=== PATIENT | female | born 1965 | race Two or more races ===

== ENCOUNTER → 2020-03-23 | Emergency (ER) | payer MEDICARE ==
[~2020-03-23] VITALS: Ht 160 cm; Wt 81.6 kg
[~2020-03-23] MED LIST: ACETAMINOPHEN 325 MG TAB PO ONE; CHLORHEXIDINE 0.12% ORAL rinse 473ML MT SCH; MORPHINE SULF INJ 2 MG/ML SYRINGE 1ML IV ONE; ONDANSETRON HCL 4 MG/2 ML VIAL IV ONE; ONDANSETRON HCL 4 MG/2 ML VIAL ONE; SODIUM CHLORIDE 0.9% 1,000 ML IV ONE; THROAT LOZENGES(CEPASTAT) MT PRN; cefTRIAXone 1GM/50ML D5W 50 ML IV ONE
[2020-03-23 09:45] LABS: Basophils # (auto) 0.1 10 ^3/uL (0-0.2); Basophils % (auto) 0.2 % (0.0-2.0); Eosinophils # (auto) 0 10 ^3/uL (0-0.8); Eosinophils % (auto) 0.1 % (0.0-7.0); Hematocrit 41.4 % (36.0-46.0); Hemoglobin 13.7 g/dL (12.2-16.2); Lymphocytes # (auto) 1.9 10 ^3/uL (0.4-5.4); Lymphocytes % (auto) 9.1 % (10.0-50.0); Mean Corpuscular Hemoglobin 29.8 pg (28.0-32.0); Mean Corpuscular Hgb Conc. 33.2 g/dL (32.0-36.0); Mean Corpuscular Volume 89.8 fL (80.0-100.0); Monocytes # (auto) 1.3 10 ^3/uL (0-1.3); Neutrophils # (auto) 17.6 10 ^3/uL (1.6-8.6); Neutrophils % (auto) 84.6 % (37.0-80.0); Nucleated Red Blood Cells % 0.1 %; Platelet Count (auto) 284 10^3/uL (140-450); Red Blood Cells 4.61 10^6/uL (4.0-5.20); Red Cell Distribution Width 13.3 % (11.8-14.3); White Blood Cell 20.9 10^3/uL (4.4-10.8)
[2020-03-23 10:11] LABS: Albumin 3.7 g/dL (3.4-5.0); Anion Gap 5 (5-15); Blood Urea Nitrogen 9 mg/dL (7-18); Calcium 8.6 mg/dL (8.5-10.1); Carbon Dioxide 25 mmol/L (21-32); Chloride 105 mmol/L (98-107); Glucose 114 mg/dL (74-106); Potassium 3.7 mmol/L (3.5-5.1); Sodium 135 mmol/L (136-145)
[2020-03-23 10:17] LABS: Alanine Aminotransferase 18 U/L (13-56); Alkaline Phosphatase 75 U/L (45-117); Aspartate Aminotransferase 10 U/L (15-37); BUN/Creatinine Ratio 11.5; Bilirubin, Total 0.4 mg/dL (0.2-1.0); GFR African American 98 mL/min; GFR Non-African American 81 mL/min; Total Protein 8.2 g/dL (6.4-8.2)
[2020-03-23 14:22] VITALS: BP 113/47
== END | disposition short-term general hospital (02) ==
LOC: ER 09:08
DX: J36 Peritonsillar abscess (principal); E86.0 Dehydration; D72.829 Elevated white blood cell count, unspecified; I10 Essential (primary) hypertension; Z20.828 Contact with and (suspected) exposure to other viral communicable diseases
CPT/HCPCS: 36415; 71045; 80053; 83605; 84484; 85025; 87040; 87804; 87880; 96361; 96365; 96375; 99285; J0696; J2270; J2405; J7030; U0003

== ENCOUNTER 2021-01-10 09:15 | Emergency (ER) | payer MEDICARE, MEDICAID ==
[~2021-01-10] VITALS: Ht 160 cm; Wt 68.0 kg
[2021-01-10 09:22] VITALS: BP 153/81
[2021-01-10] MEDS ORDERED: ACETAMINOPHEN 325 MG TAB PO ONE (09:30)
[2021-01-10] MEDS ORDERED: ACETAMINOPHEN 500 MG TAB PO ONE (09:45)
[2021-01-10] MEDS ORDERED: SODIUM CHLORIDE 0.9% 1,000 ML IV ONE (10:15)
[2021-01-10] MEDS ORDERED: cefTRIAXone 1GM/50ML D5W 50 ML IV ONE (10:15)
[2021-01-10 11:03] LABS: Basophils # (auto) 0 10 ^3/uL (0-0.2); Basophils % (auto) 0.2 % (0.0-2.0); Eosinophils # (auto) 0 10 ^3/uL (0-0.8); Hematocrit 38.6 % (36.0-46.0); Hemoglobin 13.1 g/dL (12.2-16.2); Lymphocytes # (auto) 1.4 10 ^3/uL (0.4-5.4); Lymphocytes % (auto) 11.1 % (10.0-50.0); Mean Corpuscular Hemoglobin 30.1 pg (28.0-32.0); Mean Corpuscular Hgb Conc. 33.8 g/dL (32.0-36.0); Mean Corpuscular Volume 89.1 fL (80.0-100.0); Monocytes # (auto) 0.6 10 ^3/uL (0-1.3); Monocytes % (auto) 4.7 % (0.0-12.0); Neutrophils # (auto) 10.9 10 ^3/uL (1.6-8.6); Red Blood Cells 4.34 10^6/uL (4.0-5.20); Red Cell Distribution Width 13.3 % (11.8-14.3)
[2021-01-10 11:03] LABS: Urine Bacteria FEW /hpf (None Seen); Urine Blood 2+ /uL (Negative); Urine WBC 16 /hpf (0 - 5)
[2021-01-10 11:32] LABS: Albumin 3.4 g/dL (3.4-5.0); Calcium 8.6 mg/dL (8.5-10.1); Potassium 3.7 mmol/L (3.5-5.1)
[2021-01-10 11:36] LABS: BUN/Creatinine Ratio 14.5; Bilirubin, Total 0.4 mg/dL (0.2-1.0); Total Protein 7.6 g/dL (6.4-8.2)
== END 2021-01-10 12:09 | disposition home or self-care (01) ==
LOC: ER 09:15
DX: N39.0 Urinary tract infection, site not specified (principal); R07.9 Chest pain, unspecified; J03.90 Acute tonsillitis, unspecified; I10 Essential (primary) hypertension; Z20.822 Contact with and (suspected) exposure to COVID-19
CPT/HCPCS: 36415; 71045; 80053; 81001; 84443; 85025; 87070; 87426; 87880; 96365; 99284; J0696; J7030

== ENCOUNTER → 2021-02-27 | Outpatient (CLI) | payer MEDICARE, MEDICAID | END | disposition home or self-care (01) | LOC: XYW 11:10 | PROVIDERS: ATTEND Psychiatry & Neurology Neurology | DX: I67.82 Cerebral ischemia (principal); G93.89 Other specified disorders of brain; J34.89 Other specified disorders of nose and nasal sinuses; R51.9 Headache, unspecified | CPT/HCPCS: 70551 ==

== ENCOUNTER 2021-11-08 21:25 | Emergency (ER) | payer MEDICARE, MEDICAID ==
[~2021-11-08] VITALS: Ht 165.1 cm; Wt 77.1 kg
[2021-11-08] MEDS ORDERED: LORazepam 0.5 MG TAB PO ONE (23:30)
[2021-11-09 01:39] LABS: Basophils # (auto) 0 10 ^3/uL (0-0.2); Basophils % (auto) 0.5 % (0.0-2.0); Eosinophils # (auto) 0.2 10 ^3/uL (0-0.8); Eosinophils % (auto) 1.8 % (0.0-7.0); Hematocrit 38.8 % (36.0-46.0); Hemoglobin 12.5 g/dL (12.2-16.2); Lymphocytes # (auto) 3.1 10 ^3/uL (0.4-5.4); Lymphocytes % (auto) 36.6 % (10.0-50.0); Mean Corpuscular Hemoglobin 29.2 pg (28.0-32.0); Mean Corpuscular Hgb Conc. 32.2 g/dL (32.0-36.0); Mean Corpuscular Volume 90.7 fL (80.0-100.0); Monocytes # (auto) 0.5 10 ^3/uL (0-1.3); Monocytes % (auto) 6.5 % (0.0-12.0); Neutrophils # (auto) 4.6 10 ^3/uL (1.6-8.6); Neutrophils % (auto) 54.6 % (37.0-80.0); Nucleated Red Blood Cells % 0.1 %; Red Blood Cells 4.28 10^6/uL (4.0-5.20); Red Cell Distribution Width 13.3 % (11.8-14.3); White Blood Cell 8.4 10^3/uL (4.4-10.8)
[2021-11-09 02:09] LABS: Albumin 3.5 g/dL (3.4-5.0); Calcium 8.4 mg/dL (8.5-10.1); Magnesium 2.9 mg/dL (1.6-2.6); Potassium 4.1 mmol/L (3.5-5.1)
[2021-11-09 02:23] LABS: BUN/Creatinine Ratio 35.1; Bilirubin, Total 0.2 mg/dL (0.2-1.0); Total Protein 7.2 g/dL (6.4-8.2)
[2021-11-09 08:04] VITALS: BP 153/64
[2021-11-09] MEDS ORDERED: CLIN300C8 PO (08:26)
== END 2021-11-09 08:27 | disposition home or self-care (01) ==
LOC: ER 21:27
DX: R07.89 Other chest pain (principal); K02.9 Dental caries, unspecified; I10 Essential (primary) hypertension
CPT/HCPCS: 36415; 71045; 80053; 83735; 84484; 85025; 93005

== ENCOUNTER 2023-06-28 14:02 | Inpatient (IN) | payer MEDICARE, MEDICAID ==
[~2023-06-28] VITALS: Ht 157.5 cm; Wt 81.6 kg
[~2023-06-28 14:02] MED LIST changes: -ACETAMINOPHEN 325 MG TAB PO ONE; -CHLORHEXIDINE 0.12% ORAL rinse 473ML MT SCH; +CLIN300C70 PO; -MORPHINE SULF INJ 2 MG/ML SYRINGE 1ML IV ONE; -ONDANSETRON HCL 4 MG/2 ML VIAL IV ONE; -ONDANSETRON HCL 4 MG/2 ML VIAL ONE; -SODIUM CHLORIDE 0.9% 1,000 ML IV ONE; -THROAT LOZENGES(CEPASTAT) MT PRN; -cefTRIAXone 1GM/50ML D5W 50 ML IV ONE
[2023-06-28 14:57] LABS: Urine Bacteria FEW /hpf (None Seen); Urine Blood Negative /uL (Negative); Urine Clarity Clear (Clear); Urine Color Colorless (Yellow); Urine Protein, UAD Negative (Negative); Urine Specific Gravity 1.002 (1.001-1.035); Urine Urobilinogen Normal (Negative); Urine WBC <1 /hpf (0 - 5)
[2023-06-28 15:10] LABS: Basophils # (auto) 0 10 ^3/uL (0-0.2); Basophils % (auto) 0.1 % (0.0-2.0); Eosinophils # (auto) 0.1 10 ^3/uL (0-0.8); Eosinophils % (auto) 1.3 % (0.0-7.0); Hematocrit 39.4 % (36.0-46.0); Hemoglobin 13.1 g/dL (12.2-16.2); Lymphocytes # (auto) 2.5 10 ^3/uL (0.4-5.4); Lymphocytes % (auto) 24.3 % (10.0-50.0); Mean Corpuscular Hemoglobin 30.4 pg (28.0-32.0); Mean Corpuscular Hgb Conc. 33.2 g/dL (32.0-36.0); Mean Corpuscular Volume 91.6 fL (80.0-100.0); Monocytes # (auto) 0.7 10 ^3/uL (0-1.3); Monocytes % (auto) 6.6 % (0.0-12.0); Neutrophils # (auto) 7.1 10 ^3/uL (1.6-8.6); Neutrophils % (auto) 67.7 % (37.0-80.0); Nucleated Red Blood Cells % 0.1 %; Red Cell Distribution Width 13.3 % (11.8-14.3); White Blood Cell 10.5 10^3/uL (4.4-10.8)
[2023-06-28 15:18] LABS: Alanine Aminotransferase 13 U/L (7-40); Albumin 4.3 g/dL (3.2-4.8); Alkaline Phosphatase 55 U/L (46-116); Anion Gap 4.8 (5-15); Aspartate Aminotransferase < 8 U/L (13-40); BUN/Creatinine Ratio 11.8 (10.0-20.0); Blood Urea Nitrogen 11 mg/dL (9-23); Calcium 9.4 mg/dL (8.5-10.1); Carbon Dioxide 27.2 mmol/L (20-30); Chloride 107 mmol/L (98-107); Glucose 100 mg/dL (74-106); Potassium 4.2 mmol/L (3.5-5.1); Sodium 139 mmol/L (136-145)
[2023-06-28 15:19] LABS: Bilirubin, Total 0.7 mg/dL (0.2-1.0); Total Protein 7.1 g/dL (5.7-8.2)
[2023-06-28] MEDS ORDERED: SODIUM CHLORIDE 0.9% 500 ML IV ONE (17:15)
[2023-06-28] MEDS ORDERED: ASPirin 325 MG TAB PO ONE (17:15)
[2023-06-28] MEDS ORDERED: NITROGLYCERIN 0.4 MG SL TAB SL ONE (17:15)
[2023-06-28] MEDS ORDERED: MORPHINE SULFATE 4 MG/ML SYR/VIAL IV PRN (18:45)
[2023-06-28] MEDS ORDERED: ONDANSETRON HCL 4 MG/2 ML VIAL IV PRN (18:45)
[2023-06-28] MEDS ORDERED: NITROGLYCERIN 0.4 MG SL TAB SL PRN (18:45)
[2023-06-28 21:09] LABS: INR 1.02 (0.9-1.15); Prothrombin Time 10.7 sec (9.3-11.8)
[2023-06-28] MEDS: ENOXAPARIN SOD 80 MG/0.8ML SYRINGE SC SCH (23:29)
[2023-06-28] MEDS: ATORVASTATIN 20 MG TAB PO SCH (23:29)
[2023-06-28] MEDS: METOPROLOL TARTRATE 25 MG TAB PO SCH (23:30)
[2023-06-29 00:39] VITALS: PULSE 84; O2SAT 98
[2023-06-29] MEDS: ACETAMINOPHEN 325 MG TAB PO PRN ×2 (03:22→08:22)
[2023-06-29 06:28] LABS: Basophils # (auto) 0.1 10 ^3/uL (0-0.2); Basophils % (auto) 0.8 % (0.0-2.0); Eosinophils # (auto) 0.1 10 ^3/uL (0-0.8); Eosinophils % (auto) 1.6 % (0.0-7.0); Hematocrit 38.1 % (36.0-46.0); Hemoglobin 12.9 g/dL (12.2-16.2); Lymphocytes # (auto) 3.2 10 ^3/uL (0.4-5.4); Lymphocytes % (auto) 35.8 % (10.0-50.0); Mean Corpuscular Hemoglobin 30.8 pg (28.0-32.0); Mean Corpuscular Hgb Conc. 33.9 g/dL (32.0-36.0); Monocytes # (auto) 0.6 10 ^3/uL (0-1.3); Monocytes % (auto) 6.4 % (0.0-12.0); Neutrophils % (auto) 55.4 % (37.0-80.0); Nucleated Red Blood Cells % 0.1 %; Red Blood Cells 4.18 10^6/uL (4.0-5.20); Red Cell Distribution Width 13.3 % (11.8-14.3); White Blood Cell 8.9 10^3/uL (4.4-10.8)
[2023-06-29 06:46] LABS: Anion Gap 5.7 (5-15); BUN/Creatinine Ratio 14.3 (10.0-20.0); Blood Urea Nitrogen 11 mg/dL (9-23); Calcium 9.1 mg/dL (8.7-10.4); Carbon Dioxide 26.3 mmol/L (20-30); Chloride 104 mmol/L (98-107); Glucose 95 mg/dL (74-106); Potassium 3.7 mmol/L (3.5-5.1); Sodium 136 mmol/L (136-145)
[2023-06-29 06:47] LABS: Albumin 4.2 g/dL (3.2-4.8); Aspartate Aminotransferase < 8 U/L (13-40)
[2023-06-29 06:48] LABS: Total Protein 7.1 g/dL (5.7-8.2)
[2023-06-29 06:57] LABS: Alanine Aminotransferase < 9 U/L (7-40)
[2023-06-29 06:58] LABS: Alkaline Phosphatase 54 U/L (46-116)
[2023-06-29 07:50] VITALS: PULSE 52; RESP 16; O2SAT 95
[2023-06-29] MEDS: ENOXAPARIN SOD 80 MG/0.8ML SYRINGE SC SCH (11:56)
[2023-06-29] MEDS: METOPROLOL TARTRATE 25 MG TAB PO SCH (11:57)
[2023-06-29] MEDS: ASPirin 81 mg TAB PO SCH (12:01)
[2023-06-29 18:27] VITALS: PULSE 53; RESP 18; O2SAT 94
[2023-06-29 20:00] VITALS: PULSE 53
[2023-06-29] MEDS: ATORVASTATIN 20 MG TAB PO SCH (21:20)
[2023-06-29 22:00] VITALS: BP 144/57; PULSE 56; RESP 18; TEMP 98.2; O2SAT 95
[2023-06-30 05:00] VITALS: BP 136/66; PULSE 54; RESP 18; TEMP 98.3; O2SAT 96
[2023-06-30 06:48] LABS: Triglycerides 124 mg/dL (< 150)
[2023-06-30 06:49] LABS: LDL Cholesterol 131 mg/dL (< 100)
[2023-06-30 06:50] LABS: Cholesterol 169 mg/dL (< 200); HDL Cholesterol 28 mg/dL (40-59)
[2023-06-30 08:00] VITALS: BP 164/122; PULSE 51; PULSE 59; RESP 22; TEMP 97.6; O2SAT 96
[2023-06-30] MEDS ORDERED: LOSARTAN POTASSIUM 25 MG TAB PO SCH (10:00)
[2023-06-30] MEDS: ASPirin 81 mg TAB PO SCH (10:00)
[2023-06-30] MEDS ORDERED: ENOXAPARIN SOD 40 MG/0.4 ML SYRINGE SC SCH (10:00)
[2023-06-30] MEDS ORDERED: PANT40T PO (11:03)
[2023-06-30] MEDS ORDERED: LOSA25TA15 PO (11:03)
[2023-06-30 12:00] VITALS: BP 151/71; PULSE 50; RESP 20; TEMP 97.8; O2SAT 97
[2023-06-30] MEDS ORDERED: LACTULOSE 20Gm/30ML SOLN PO ONE (14:30)
== END 2023-06-30 15:35 | disposition home or self-care (01) | DRG 311 ==
LOC: ER 14:02 → TELE 18:49 → TELE-WESTW 06-29 18:28
PROVIDERS: ADMIT Nurse Practitioner Family; ATTEND Family Medicine
DX: I24.9 Acute ischemic heart disease, unspecified (principal); R07.89 Other chest pain; I10 Essential (primary) hypertension; E66.9 Obesity, unspecified; E03.9 Hypothyroidism, unspecified; F41.1 Generalized anxiety disorder; R00.1 Bradycardia, unspecified; E11.9 Type 2 diabetes mellitus without complications; Z79.899 Other long term (current) drug therapy; Z68.32 Body mass index [BMI] 32.0-32.9, adult
CPT/HCPCS: 36415; 71046; 80053; 80061; 81001; 83036; 83735; 84443; 84484; 85025; 85379; 85610; 93005; 93306; G0378; J2405

== ENCOUNTER 2024-03-11 22:16 | Emergency (ER) | payer MEDICARE, MEDICAID ==
[~2024-03-11] VITALS: Ht 165.1 cm; Wt 81.8 kg
[~2024-03-11 22:16] MED LIST changes: +CLIN1CAP70 PO; -CLIN300C70 PO; +LOSA-533 PO; +PANT40T PO
[2024-03-11 23:35] LABS: Basophils # (auto) 0 10 ^3/uL (0-0.2); Basophils % (auto) 0.5 % (0.0-2.0); Eosinophils # (auto) 0.2 10 ^3/uL (0-0.8); Eosinophils % (auto) 2.6 % (0.0-7.0); Hematocrit 40.7 % (36.0-46.0); Hemoglobin 13.4 g/dL (12.2-16.2); Lymphocytes # (auto) 2.8 10 ^3/uL (0.4-5.4); Lymphocytes % (auto) 34.4 % (10.0-50.0); Mean Corpuscular Hemoglobin 29.9 pg (28.0-32.0); Mean Corpuscular Hgb Conc. 32.9 g/dL (32.0-36.0); Mean Corpuscular Volume 90.9 fL (80.0-100.0); Monocytes # (auto) 0.5 10 ^3/uL (0-1.3); Monocytes % (auto) 6.7 % (0.0-12.0); Neutrophils # (auto) 4.6 10 ^3/uL (1.6-8.6); Neutrophils % (auto) 55.8 % (37.0-80.0); Red Blood Cells 4.47 10^6/uL (4.0-5.20); Red Cell Distribution Width 13.4 % (11.8-14.3); White Blood Cell 8.2 10^3/uL (4.4-10.8)
[2024-03-11 23:53] LABS: INR 1.01 (0.9-1.15); Partial Thromboplastin Time 25.7 SEC (24.5-34.5); Prothrombin Time 10.7 sec (9.3-11.8)
[2024-03-11 23:56] LABS: Alanine Aminotransferase 43 U/L (7-40); Albumin 4.4 g/dL (3.2-4.8); Alkaline Phosphatase 55 U/L (46-116); Anion Gap 4 (5-15); Aspartate Aminotransferase 23 U/L (13-40); BUN/Creatinine Ratio 20.5 (10.0-20.0); Blood Urea Nitrogen 16 mg/dL (9-23); Calcium 9.7 mg/dL (8.7-10.4); Carbon Dioxide 26 mmol/L (20-30); Chloride 107 mmol/L (98-107); Glucose 110 mg/dL (74-106); Lipase 57 U/L (12-53); Sodium 137 mmol/L (136-145)
[2024-03-11 23:57] LABS: Bilirubin, Total 0.3 mg/dL (0.2-1.0); Total Protein 7.5 g/dL (5.7-8.2)
[2024-03-12] MEDS ORDERED: ACET-1304 PO (02:42)
[2024-03-12] MEDS ORDERED: PANT40TA2 PO (02:42)
[2024-03-12] MEDS ORDERED: METR-344 PO (02:42)
[2024-03-12] MEDS ORDERED: CIPR-173 PO (02:42)
[2024-03-12] MEDS ORDERED: DICY10CA PO (02:43)
[2024-03-12 05:30] VITALS: BP 126/88; PULSE 78; RESP 16; O2SAT 97
[2024-03-12] MEDS: MORPHINE SULFATE 4 MG/ML SYR/VIAL IV ONE (05:30)
[2024-03-12] MEDS: PANTOPRAZOLE 40 MG/10 ML VIAL INJ IV ONE (05:30)
[2024-03-12] MEDS: PIPERACILLIN-TAZOB 3.375GM 100 ML IV ONE (05:30)
[2024-03-12] MEDS: ONDANSETRON HCL 4 MG/2 ML VIAL IV ONE (05:30)
== END 2024-03-12 05:31 | disposition home or self-care (01) ==
LOC: ER 22:16
DX: K92.2 Gastrointestinal hemorrhage, unspecified (principal); R31.9 Hematuria, unspecified; I10 Essential (primary) hypertension; F41.9 Anxiety disorder, unspecified; Z79.899 Other long term (current) drug therapy
CPT/HCPCS: 36415; 74176; 80053; 83605; 83690; 84484; 85025; 85610; 85730; 87040

== ENCOUNTER 2024-09-17 05:27 | Inpatient (IN) | payer MEDICARE, MEDICAID ==
[~2024-09-17] VITALS: Ht 157.5 cm; Wt 83.0 kg
[~2024-09-17 05:27] MED LIST changes: +ACET-1304 PO; +CIPR-173 PO; +DICY10CA PO; +METR-344 PO; +PANT40TA2 PO
--- NOTE | 2024-09-17 06:30 | ED.PDOC ---
History of Present Illness HPI Comments 59-year-old female presents with a chief complaint of lightheadedness and dizzy spells s/p hypertensive episodes. Patient mentions that she recently lost two sons and has been under a higher amount of stress recently. Patient mentions that when she takes her blood pressure it results in the 200s systolic. Patient mentions that she is compliant with her HTN medication, but that her BP keeps fluctuating. Patient is tearful in triage. No other symptoms or modifying factors present at this time. Chief Complaint: High Blood Pressure Time Seen by MD: 06:09 Primary Care Provider: MIKEL Reviewed Notes: Medications, Allergies Allergies: Coded Allergies: No Known Drug Allergy (Verified Allergy, Unknown, 03/23/20) Home Meds Active Scripts Dicyclomine Hcl (BENTYL CAPSULE) 10 Mg Cp, 2 CAP PO Q6HPRN, #30 CAP 3 Refills prn abdomnal pain Prov:LIT ALMARAZ MD 03/12/24 Acetaminophen (Tylenol Extra Strength) 500 Mg Tab, 1000 MG PO Q6HP PRN, #30 TAB Prov:LIT ALMARAZ MD 03/12/24 Pantoprazole Sodium Sesquihydr (Protonix) 40 Mg Tab, 40 MG PO DAILY, #30 TAB Prov:LIT ALMARAZ MD 03/12/24 Metronidazole (Flagyl) 500 Mg Tab, 1 TAB PO TID for 10 Days, #30 TAB Prov:LIT ALMARAZ MD 03/12/24 Ciprofloxacin Hcl (Cipro) 500 Mg Tab, 1 TAB PO BID for 10 Days, #20 TAB Prov:LIT ALMARAZ MD 03/12/24 Pantoprazole Sodium Sesquihydr (Pantoprazole Sodium) 40 Mg Tab, 40 MG PO DAILY, #30 TAB Prov:DAYDAY OROZCO MD 06/30/23 Losartan Potassium (Losartan Potassium) 25 Mg Tab, 1 TAB PO DAILY, #90 TAB 1 Refill Prov:DAYDAY OROZCO MD 06/30/23 Clindamycin Hcl (Clindamycin Hcl) 300 Mg Cap, 300 MG PO TID for 7 Days, #21 CAP Prov:NUPUR MCGEE MD 11/09/21 Information Source: Patient Mode of Arrival: Ambulatory Severity: Moderate Timing: Days Duration: Since onset Prehospital treatment: None Past Medical History PAST MEDICAL HISTORY: Anxiety, HTN, Thyroid Surgical History: Denies all surgeries 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 [employer]UL[employer] TEAM LEADER History Family History Family History: Reviewed,noncontributory to illness Social History Smoker: Non-Smoker Alcohol: Denies ETOH Use Drugs: Denies Drug Use Lives In: Home Constitutional: denies: chills, diaphoresis, fatigue, fever, malaise, sweats, weakness, others EENTM: denies: blurred vision, double vision, ear bleeding, ear discharge, ear drainage, ear pain, ear ringing, eye pain, eye redness, hearing loss, mouth pain, mouth swelling, nasal discharge, nose bleeding, nose congestion, nose pain, photophobia, tearing, throat pain, throat swelling, voice changes, others Respiratory: denies: cough, hemoptysis, orthopnea, SOB at rest, shortness of breath, SOB with excertion, stridor, wheezing, others Cardiovascular: reports: dizzy spells, lightheadedness; denies: chest pain, diaphoresis, Dyspnea on exertion, edema, irregular heart beat, left arm pain, palpitations, PND, syncope, others Gastrointestinal: denies: abdomen distended, abdominal pain, blood streaked bowels, constipated, diarrhea, dysphagia, difficulty swallowing, hematemesis, melena, nausea, poor appetite, poor fluid intake, rectal bleeding, rectal pain, vomiting, others Genitourinary: denies: abnormal vagina bleeding, burning, dyspareunia, dysuria, flank pain, frequency, hematuria, incontinence, pain, , vagina discharge, urgency, others Neurological: denies: dizziness, fainting, headache, left sided numbness, left sided weakness, numbness, paresthesia, pre-existing deficit, right sided numbness, right sided weakness, seizure, speech problems, tingling, tremors, weakness, others Musculoskeletal: denies: back pain, gout, joint pain, joint swelling, muscle pain, muscle stiffness, neck pain, others Integumetry: denies: bruises, change in color, change in hair/nails, dryness, laceration, lesions, lumps, rash, wounds, others Allergic/Immunocompromised: denies: Difficulty Healing, Frequent Infections, Hives, Itching, others Hematologic/Lymphatic: denies: anemia, blood clots, easy bleeding, easy bruising, swollen glands, others Endocrine: denies: excessive hunger, excessive sweating, excessive thirst, excessive urination, flushing, intolerance to cold, intolerance to heat, unexplained weight gain, unexplained weight loss, others Psychiatric: denies: anxiety, bipolar disorder, depression, hopeless, panic disorder, schizophrenia, sleepless, suicidal, others All Other Systems: Reviewed and Negative Physical Exam General Appearance: Moderate Distress (PATIENT IS TEARFUL IN TRIAGE), Normal HEENT: Normal ENT Inspection, Pharynx Normal, TMs Normal Neck: Full Range of Motion, Non-Tender, Normal, Normal Inspection Respiratory: Chest Non-Tender, Lungs Clear, No Accessory Muscle Use, No Respiratory Distress, Normal Breath Sounds Cardiovascular: No Edema, No JVD, No Murmur, No Gallop, Normal Peripheral Pulses, Regular Rate/Rhythm Breast Exam: Deferred Gastrointestinal: No Organomegaly, Non Tender, No Pulsatile Mass, Normal Bowel Sounds, Soft Genitalia: Deferred Pelvic: Deferred Rectal: Deferred Extremities: No calf tenderness, Normal capillary refill, Normal inspection, Normal range of motion, Non-tender, No pedal edema Musculoskeletal : Apperance: Normal Neurologic: Alert, corporate compliance officer II-XII nml as Tested, No Motor Deficits, Normal Affect, Normal Mood, No Sensory Deficits Cerebellar Function: Normal Reflexes: Normal Skin: Dry, Normal Color, Warm Lymphatic: No Adenopathy Was a procedure done? Was a procedure done?: No Differential Dx Considerations may include: Hypertensive urgency, grief, ACS, electrolyte abnormalities, infectious etiology X-Ray, Labs, Meds, VS Vital Signs Date Time Temp Pulse Resp B/P (MAP) Pulse Ox O2 Delivery O2 Flow Rate FiO2 09/17/24 09:48 158/64 09/17/24 09:38 56 17 158/64 (95) 99 09/17/24 07:28 57 18 99 Room Air 09/17/24 07:28 97.7 57 18 201/77 (118) 99 97.7 09/17/24 05:52 58 09/17/24 05:40 98.0 60 16 177/82 (113) 98 Lab Test 09/17/24 10:30 09/17/24 08:33 09/17/24 07:39 09/17/24 06:33 Range/Units Troponin I High Sensitivity Pending 3 L 4 </=34 ng/L Urine Color Light-yellow Yellow Urine Clarity Clear Clear Urine pH 5.0 5.0-9.0 Urine Specific [place] 1.016 1.001-1.035 Urine Protein Negative Negative Urine Ketones Negative Negative Urine Blood Trace H Negative /uL Urine Nitrite Negative Negative Urine Bilirubin Negative Negative Urine Urobilinogen Normal Negative mg/dL Urine Leukocyte Esterase Negative Negative /uL Urine RBC 1 0 - 4 /hpf Urine WBC 1 0 - 5 /hpf Urine Squamous Epithelial Cells Few <5 /hpf Urine Bacteria Few H None Seen /hpf Urine Mucus Few None Seen Urine Glucose Normal Normal mg/dL White Blood Count 6.2 4.4-10.8 10^3/uL Red Blood Count 4.37 4.0-5.20 10^6/uL Hemoglobin 13.6 12.2-16.2 g/dL Hematocrit 40.4 36.0-46.0 % Mean Corpuscular Volume 92.4 80.0-100.0 fL Mean Corpuscular Hemoglobin 31.1 28.0-32.0 pg Mean Corpuscular Hemoglobin Concent 33.6 32.0-36.0 g/dL Red Cell Distribution Width 13.4 11.8-14.3 % Platelet Count 302 140-450 10^3/uL Mean Platelet Volume 9.4 6.9-10.8 fL Neutrophils (%) (Auto) 53.5 37.0-80.0 % Lymphocytes (%) (Auto) 39.2 10.0-50.0 % Monocytes (%) (Auto) 5.1 0.0-12.0 % Eosinophils (%) (Auto) 1.9 0.0-7.0 % Basophils (%) (Auto) 0.3 0.0-2.0 % Neutrophils # (Auto) 3.3 1.6-8.6 10 ^3/uL Lymphocytes # (Auto) 2.4 0.4-5.4 10 ^3/uL Monocytes # (Auto) 0.3 0-1.3 10 ^3/uL Eosinophils # (Auto) 0.1 0-0.8 10 ^3/uL Basophils # (Auto) 0 0-0.2 10 ^3/uL Nucleated Red Blood Cells 0.2 % Sodium Level 139 136-145 mmol/L Potassium Level 3.9 3.5-5.1 mmol/L Chloride Level 107 98-107 mmol/L Carbon Dioxide Level 27 20-31 mmol/L Anion Gap 5 5-15 Blood Urea Nitrogen 12 9-23 mg/dL Creatinine 0.72 0.550-1.02 mg/dL Glomerular Filtration Rate Calc 95 >90 mL/min BUN/Creatinine Ratio 16.7 10.0-20.0 Serum Glucose 88 74-106 mg/dL Calcium Level 9.7 8.7-10.4 mg/dL Current Medications Medications (Trade) Dose Ordered Sig/Awais Route Start Time Stop Time Status Last Admin Acetaminophen (Tylenol Tablet) 650 mg ONCE ONCE PO 09/17/24 09:45 09/17/24 09:46 DC 09/17/24 09:47 Metoclopramide HCl (Reglan Injection) 10 mg ONCE ONCE IV 09/17/24 09:45 09/17/24 09:46 DC 09/17/24 09:48 Hydralazine HCl (Apresoline Injection) 10 mg ONCE ONCE IV 09/17/24 09:45 09/17/24 09:46 DC 09/17/24 09:48 Time of 1ST Reevaluation: 06:49 Reevaluation 1ST: Unchanged Patient Education/Counseling: Diagnosis, Treatment, Prognosis Family Education/Counseling: No Family Present Departure 1 Departure Time of Disposition: 10:57 (Patient presented with hypertension and symptoms concerning for hypertensive emergency. Patient is receiving iv blood pressure medications requiring intensive monitoring. Data: 1. I ordered and reviewed the result of at least 3 labs including a CBC, BMP, and Urinalysis. 2. I independently interpreted the following tests: CT Brain: Which appears benign. EKG which is Normal Sinus RhythmRisk:This patient has a high risk of morbidity due to further diagnostic testing or treatment and may suffer from an acute cardiac disorder. Workup reveals hypertensive emergency and patient should be admitted for further workup. and possible expert consultation. ) Impression: Primary Impression: Hypertensive urgency Additional Impressions: Migraine Qualified Codes: G43.109 - Migraine with aura, not intractable, without status migrainosus Acute chest pain Disposition: ADMITTED INPATIENT Admit to: Med Surg Condition: Serious Critical Care Note Critical Care Time?: Yes Critical care comment: Hypertensive urgency Authorized and Performed by: Chacorta Sigala MD Total critical care time: Approximately 41 minutes Due to a high probability of clinically significant, life threatening deterioration, the patient required my highest level of preparedness to intervene emergently and I personally spent this critical care time directly and personally managing the patient. This critical care time included obtaining a history; examining the patient; pulse oximetry; ordering and review of studies; arranging urgent treatment with development of a management plan; evaluation of patient's response to treatment; frequent reassessment; and, discussions with other providers. This critical care time was performed to assess and manage the high probability of imminent, life-threatening deterioration that could result in multi-organ failure. It was exclusive of separately billable procedures and treating other patients and teaching time. Please see my other sections and the rest of the note for further information on patient assessment and treatment. Stability Stability form required: No I personally scribed for CHACORTA SIGALA MD ([email or web address]) on 09/17/24 at 06:30. Electronically submitted by Abelardo Pagan ([email or web address]). CHACORTA SIGALA MD Sep 17, 2024 06:30
--- NOTE | 2024-09-17 07:36 | DVH ---
EXAM: CT HEAD WITHOUT CONTRAST INDICATION: htn, near syncope TECHNIQUE: CT of the head without intravenous contrast. Coronal and sagittal reformatted images are submitted. Radiation Dose : 1. Head: CT Dose: CTDI volume is 58.69 mGy. Dose-length product is 1039.07 mGy*cm The dose indicators for CT are the volume Computed Tomography (CT) Dose Index (CTDIvol) and the Dose Length Product (DLP), and are measured in units of mGy and mGy-cm, respectively. These indicators are not patient dose, but values generated from the CT scanner acquisition factors. The report includes radiation exposure data for exposures received during this examination. All CT scans at this medical facility are performed using dose modulation techniques as appropriate to a performed exam including the following: Automated exposure control was utilized; adjustment of the MA and/or KV according to patient size; and use of iterative reconstruction technique. COMPARISON: BRAIN HEAD WO CONTRAST on DOS: 02/27/21 FINDINGS: There is no evidence of acute intracranial hemorrhage, extra-axial collection, mass effect, midline s hift, herniation or hydrocephalus. The ventricles, sulci and cisterns are age appropriate. The garcía-white differentiation is intact. The visualized paranasal sinuses and mastoid air cells are clear. No depressed calvarial fracture. The surrounding soft tissues are unremarkable. IMPRESSION: 1. No evidence of acute intracranial abnormality.
--- NOTE | 2024-09-17 07:39 | DVH ---
XY CHEST TWO VIEWS ROUTINE CLINICAL HISTORY: htn, near syncope COMPARISON: XY CHEST TWO VIEWS ROUTINE on DOS: 06/28/23 TECHNIQUE: Frontal and lateral view of the chest was obtained FINDINGS: Lines and Tubes: None Lungs: No focal consolidation. Pleura: No effusion. No pneumothorax. Cardiomediastinal contours: Unremarkable Bones: No acute osseous abnormality. IMPRESSION: 1. No acute cardiopulmonary disease.
[2024-09-17 07:48] LABS: Chloride 107 mmol/L (98-107); Potassium 3.9 mmol/L (3.5-5.1); Sodium 139 mmol/L (136-145)
[2024-09-17 07:50] LABS: Anion Gap 5 (5-15); Calcium 9.7 mg/dL (8.7-10.4); Carbon Dioxide 27 mmol/L (20-31)
[2024-09-17 07:51] LABS: Basophils # (auto) 0 10 ^3/uL (0-0.2); Basophils % (auto) 0.3 % (0.0-2.0); Eosinophils # (auto) 0.1 10 ^3/uL (0-0.8); Eosinophils % (auto) 1.9 % (0.0-7.0); Hematocrit 40.4 % (36.0-46.0); Hemoglobin 13.6 g/dL (12.2-16.2); Lymphocytes # (auto) 2.4 10 ^3/uL (0.4-5.4); Lymphocytes % (auto) 39.2 % (10.0-50.0); Mean Corpuscular Hemoglobin 31.1 pg (28.0-32.0); Mean Corpuscular Hgb Conc. 33.6 g/dL (32.0-36.0); Mean Corpuscular Volume 92.4 fL (80.0-100.0); Monocytes # (auto) 0.3 10 ^3/uL (0-1.3); Monocytes % (auto) 5.1 % (0.0-12.0); Neutrophils # (auto) 3.3 10 ^3/uL (1.6-8.6); Neutrophils % (auto) 53.5 % (37.0-80.0); Nucleated Red Blood Cells % 0.2 %; Platelet Count (auto) 302 10^3/uL (140-450); Red Blood Cells 4.37 10^6/uL (4.0-5.20); Red Cell Distribution Width 13.4 % (11.8-14.3); White Blood Cell 6.2 10^3/uL (4.4-10.8)
[2024-09-17 07:55] LABS: BUN/Creatinine Ratio 16.7 (10.0-20.0); Blood Urea Nitrogen 12 mg/dL (9-23); Glucose 88 mg/dL (74-106)
[2024-09-17 08:10] LABS: Urine Bacteria FEW /hpf (None Seen); Urine Blood TRACE /uL (Negative); Urine Clarity Clear (Clear); Urine Color Light-Yellow (Yellow); Urine Mucus FEW (None Seen); Urine Protein, UAD Negative (Negative); Urine Specific Gravity 1.016 (1.001-1.035); Urine Urobilinogen Normal (Negative); Urine WBC 1 /hpf (0 - 5)
[2024-09-17] MEDS: ACETAMINOPHEN 325 MG TAB PO ONE (09:47)
[2024-09-17] MEDS: METOCLOPRAMIDE HCL 5MG/ml INJ 2ml VIAL IV ONE (09:48)
[2024-09-17] MEDS: hydrALAZINE HCL 20 MG/ML VL IV ONE (09:48)
--- NOTE | 2024-09-17 11:29 | DVHHP2 ---
History of Present Illness Reason for Visit: High blood pressure History of Present Illness Edith Perez is a 59YO F with pmHx of HTN and thyroid disease who presents to the ED with SBP 200s, lightheadness, dizziness and headache 05/08. She reports recent stress d/t loss of 2 sons in December of 2023. She denies fever, chills, vision changes and shortness of breath. Cardiovascular: HTN Endocrine: Hypothyroidism Smoke: No ALCOHOL: none Drugs: None Lives: with Family Domestic Violence: Neg Review of Systems Constitutional: No: Fever, Chills, Sweats, Weakness, Malaise, Other Eyes: No: Pain, Vision change, Conjunctivae inflammation, Eyelid inflammation, Other, Redness ENT: No: Ear pain, Ear discharge, Nose pain, Nose discharge, Nose congestion, Mouth pain, Mouth swelling, Throat pain, Throat swelling, Other Respiratory: No: Cough, Dry, Shortness of breath, SOB with excertion, Wheezing, Hemoptysis, Pleuritic Pain, Sputum, Wheezing, Other Cardiovascular: Lt Headedness; No: Chest Pain, Palpitations, Orthopnea, Paroxysmal Noc. Dyspnea, Edema, Other Gastrointestinal: No: Nausea, Vomiting, Abdominal Pain, Diarrhea, Constipation, Melena, Hematochezia, Other Genitourinary: No Dysuria, No Frequency, No Incontinence, No Hematuria, No Retention, No Other Musculoskeletal: No: other, neck pain, shoulder pain, arm pain, back pain, hand pain, leg pain, foot pain Skin: No: Rash, Lesions, Jaundice, Bruising, Other Neurological: Other (dizziness and headache); No: Weakness, Numbness, Incoordination, Change in speech, Confusion, Seizures Allergies: Coded Allergies: No Known Drug Allergy (Verified Allergy, Unknown, 03/23/20) Exam Vital Signs Vital Signs Date Time Temp Pulse Resp B/P (MAP) Pulse Ox O2 Delivery O2 Flow Rate FiO2 09/17/24 09:48 158/64 09/17/24 09:38 56 17 99 09/17/24 07:28 Room Air 09/17/24 07:28 97.7 97.7 General Appearance: Alert, Oriented X3, Cooperative, No acute distress HEENT: PERRLA, EOMI, Mucous membr. moist/pink Respiratory: Clear to auscultation, Normal air movement Cardiovascular: Normal S1, Normal S2 Abdominal: Normal bowel sounds, Soft, No tenderness Extremities: No clubbing, No cyanosis, No edema, Normal pulses Skin: No rashes, No breakdown, No significant lesion Neuro: Normal gait, Normal speech, Strength at 5/5 X4 ext Psych/Mental Status: Mental status NL, Mood NL Labs/Xrays Labs Test 09/17/24 10:30 09/17/24 07:39 09/17/24 06:33 Range/Units Troponin I High Sensitivity 3 L </=34 ng/L Urine Color Light-yellow Yellow Urine Clarity Clear Clear Urine pH 5.0 5.0-9.0 Urine Specific [place] 1.016 1.001-1.035 Urine Protein Negative Negative Urine Ketones Negative Negative Urine Blood Trace H Negative /uL Urine Nitrite Negative Negative Urine Bilirubin Negative Negative Urine Urobilinogen Normal Negative mg/dL Urine Leukocyte Esterase Negative Negative /uL Urine RBC 1 0 - 4 /hpf Urine WBC 1 0 - 5 /hpf Urine Squamous Epithelial Cells Few <5 /hpf Urine Bacteria Few H None Seen /hpf Urine Mucus Few None Seen Urine Glucose Normal Normal mg/dL White Blood Count 6.2 4.4-10.8 10^3/uL Red Blood Count 4.37 4.0-5.20 10^6/uL Hemoglobin 13.6 12.2-16.2 g/dL Hematocrit 40.4 36.0-46.0 % Mean Corpuscular Volume 92.4 80.0-100.0 fL Mean Corpuscular Hemoglobin 31.1 28.0-32.0 pg Mean Corpuscular Hemoglobin Concent 33.6 32.0-36.0 g/dL Red Cell Distribution Width 13.4 11.8-14.3 % Platelet Count 302 140-450 10^3/uL Mean Platelet Volume 9.4 6.9-10.8 fL Neutrophils (%) (Auto) 53.5 37.0-80.0 % Lymphocytes (%) (Auto) 39.2 10.0-50.0 % Monocytes (%) (Auto) 5.1 0.0-12.0 % Eosinophils (%) (Auto) 1.9 0.0-7.0 % Basophils (%) (Auto) 0.3 0.0-2.0 % Neutrophils # (Auto) 3.3 1.6-8.6 10 ^3/uL Lymphocytes # (Auto) 2.4 0.4-5.4 10 ^3/uL Monocytes # (Auto) 0.3 0-1.3 10 ^3/uL Eosinophils # (Auto) 0.1 0-0.8 10 ^3/uL Basophils # (Auto) 0 0-0.2 10 ^3/uL Nucleated Red Blood Cells 0.2 % Sodium Level 139 136-145 mmol/L Potassium Level 3.9 3.5-5.1 mmol/L Chloride Level 107 98-107 mmol/L Carbon Dioxide Level 27 20-31 mmol/L Anion Gap 5 5-15 Blood Urea Nitrogen 12 9-23 mg/dL Creatinine 0.72 0.550-1.02 mg/dL Glomerular Filtration Rate Calc 95 >90 mL/min BUN/Creatinine Ratio 16.7 10.0-20.0 Serum Glucose 88 74-106 mg/dL Calcium Level 9.7 8.7-10.4 mg/dL EXAM: CT HEAD WITHOUT CONTRAST FINDINGS: There is no evidence of acute intracranial hemorrhage, extra-axial collection, mass effect, midline shift, herniation or hydrocephalus. The ventricles, sulci and cisterns are age appropriate. The garcía-white differentiation is intact. The visualized paranasal sinuses and mastoid air cells are clear. No depressed calvarial fracture. The surrounding soft tissues are unremarkable. IMPRESSION: 1. No evidence of acute intracranial abnormality. XY CHEST TWO VIEWS ROUTINE FINDINGS: Lines and Tubes: None Lungs: No focal consolidation. Pleura: No effusion. No pneumothorax. Cardiomediastinal contours: Unremarkable Bones: No acute osseous abnormality. IMPRESSION: 1. No acute cardiopulmonary disease. 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
--- NOTE | 2024-09-17 12:09 | ECG ---
[facility] Test Date: 2024-09-17 Test Time: 05:52:28 Pat Name: CT NARAYAN Department: ER Room: 0280 Gender: F Bone Tender: ROMY : 1965 Requested By: CHACORTA SIGALA Order Number: [id number] Reading MD: Rigo Webb Measurements Intervals [place] Rate: 58 P: 18 OR: 193 QRS: -24 QRSD: 94 T: 34 QT: 423 QTc: 416 Interpretive Statements Sinus rhythm Borderline left axis deviation Electronically Signed On 09-20-2024 17:18:18 PST by Rigo Webb Please click the below link to view image of tracing.
[2024-09-17 12:12] VITALS: PULSE 77; RESP 16; O2SAT 98
[2024-09-17] MEDS ORDERED: LOSA-534 PO (12:57)
[2024-09-17] MEDS ORDERED: LEVO25TA6 PO (12:57)
[2024-09-17] MEDS ORDERED: MORPHINE SULFATE INJ 2 MG/ml SYRG IV PRN (13:00)
[2024-09-17] MEDS ORDERED: ONDANSETRON HCL 4 MG/2 ML VIAL IV PRN (13:00)
[2024-09-17] MEDS ORDERED: DOCUSATE SOD 100 MG CAP PO PRN (13:00)
[2024-09-17] MEDS: SODIUM CHLOR 0.9% PF (SALINE LOCK) 10ML VIAL/SYR IV SCH (14:20)
[2024-09-17] MEDS: hydrALAZINE HCL 20 MG/ML VL IV PRN (15:46)
[2024-09-17] MEDS: HYDROcodone-ACET 5/325MG TAB PO PRN (22:11)
[2024-09-18] MEDS: LEVOTHYROXINE SODIUM 25 MCG TAB PO SCH (06:06)
[2024-09-18 08:00] VITALS: PULSE 64; RESP 20; O2SAT 100
[2024-09-18 08:28] LABS: Basophils # (auto) 0 10 ^3/uL (0-0.2); Basophils % (auto) 0.4 % (0.0-2.0); Eosinophils # (auto) 0.1 10 ^3/uL (0-0.8); Eosinophils % (auto) 1.4 % (0.0-7.0); Hematocrit 41.2 % (36.0-46.0); Lymphocytes # (auto) 2.5 10 ^3/uL (0.4-5.4); Mean Corpuscular Hemoglobin 31.1 pg (28.0-32.0); Mean Corpuscular Hgb Conc. 33.9 g/dL (32.0-36.0); Mean Corpuscular Volume 91.7 fL (80.0-100.0); Monocytes # (auto) 0.4 10 ^3/uL (0-1.3); Monocytes % (auto) 5.7 % (0.0-12.0); Neutrophils # (auto) 4.5 10 ^3/uL (1.6-8.6); Neutrophils % (auto) 59.5 % (37.0-80.0); Nucleated Red Blood Cells % 0.1 %; Platelet Count (auto) 327 10^3/uL (140-450); Red Blood Cells 4.49 10^6/uL (4.0-5.20); Red Cell Distribution Width 13.7 % (11.8-14.3); White Blood Cell 7.6 10^3/uL (4.4-10.8)
[2024-09-18 08:41] LABS: Alanine Aminotransferase 33 U/L (7-40); Albumin 4.7 g/dL (3.2-4.8); Alkaline Phosphatase 60 U/L (46-116); Anion Gap 7 (5-15); Aspartate Aminotransferase 12 U/L (13-40); BUN/Creatinine Ratio 21.8 (10.0-20.0); Blood Urea Nitrogen 17 mg/dL (9-23); Calcium 10.1 mg/dL (8.7-10.4); Carbon Dioxide 27 mmol/L (20-31); Chloride 107 mmol/L (98-107); Glucose 89 mg/dL (74-106); Potassium 3.9 mmol/L (3.5-5.1); Sodium 141 mmol/L (136-145); Total Protein 7.8 g/dL (5.7-8.2)
[2024-09-18 09:13] VITALS: BP 170/68; PULSE 65; RESP 18; TEMP 98.5; O2SAT 98
[2024-09-18] MEDS: LOSARTAN POTASSIUM 50 MG TAB PO ONE (11:31)
[2024-09-18 18:08] VITALS: BP 152/58; PULSE 59; RESP 18; TEMP 99; O2SAT 98; O2SAT 99
--- NOTE | 2024-09-18 18:17 | DVHPNRES ---
Progress Note Date Seen: Sep 18, 2024 Resident Creating Document: BISMARK HANSEN RESIDENT Medical Necessity Reason Pt with a Central, PICC or Fol: No Subjective Review of Systems This is a 59-year-old female with a past medical history of hypertension, hypothyroidism, and depression who presented to the ED after noticing her BP in the 200s with an associated headache and chest pain. Patient described the headache located in the occipital region. Chest pain described as pressure-like sensation and rated 7/10. Patient acknowledged that she has been having chest pain since December of this year. She has not seen a survey methodologist or followed up with a primary care physician. Of note, patient lost 2 children one-week apart in December 2023. Since then, she has not the same. She stopped taking her antidepressant medications; however, she continued to take her antihypertensive medication, losartan 50 mg, daily. She denied fever, cough, lower abdominal pain, nausea and vomiting. In the ED, her vitals were temperature 98, pulse; 60, RR: 16 and BP: 177/82---> 201/77. At the time of my visit, patient's BP: 159/63. CBC, CMP and troponin were unremarkable and EKG did not reveal any evidence of ST elevation or ST depression. Patient received losartan 50 mg and also hydralazine 10 mg p.r.n. Constitutional: Denies fever no chills, but is feeling of malaise HEENT: light headache; No ear pain, ear discharges, conjunctivitis, nasal discharge throat pain Cardiovascular: pressure-like chest pain; Denies palpitation, orthopnea, PND, or pedal edema Respiratory: Denies shortness of breath, cough, sputum production, hemoptysis, GI: Denies abdominal pain, nausea, vomiting, diarrhea, hematemesis, hematochezia, : Denies frequency, urgency, hematuria, Endocrine: Denies unintentional weight gain or weight loss, feeling of hot flashes, Kun: Denies easy bruising, bleeding disorders, epistaxis Musculoskeletal: Denies joint pains, muscle aches Psych: Depression; NO evidence of heather, suicidal ideation Objective vital signs Vital Sign Date Time Temp Pulse Resp B/P (MAP) Pulse Ox O2 Delivery O2 Flow Rate FiO2 09/18/24 16:36 62 14 150/63 (92) 98 09/18/24 09:13 98.5 98.5 09/18/24 08:00 Room Air* 0 21 medications Current Medications Medications Dose Ordered Sig/Awais Route Start Time Stop Time Status Last Admin Dose Admin Sodium Chloride 10 ml Q8HR IV 09/17/24 14:00 09/18/24 14:01 10 ML Ondansetron HCl 4 mg Q4HP PRN IV 09/17/24 13:00 Docusate Sodium 100 mg BIDPRN PRN PO 09/17/24 13:00 Acetaminophen 650 mg Q6HP PRN PO 09/17/24 13:00 Morphine Sulfate 2 mg Q4HPRN PRN IV 09/17/24 13:00 Levothyroxine Sodium 25 mcg QAM@0600 PO 09/18/24 06:00 09/18/24 06:06 25 MCG Hydralazine HCl 10 mg Q6HP PRN IV 09/18/24 11:00 Ibuprofen 400 mg Q6HP PRN PO 09/18/24 15:15 Examination General examination- Not in acute distress HEENT: PEERLA, no acute nasal discharge Chest: S1-S2 audible, rate and rhythm regular, no murmur Lung: CTAB, no wheeze or rhonchi Abdomen: Non-distend, BS+, non-tenderness, no organomegaly Musculoskeletal: no acute joint swelling or tenderness Lower extremity: no leg edema Neurological: cranial nerves intact, no acute dysarthria or dysphagia Psychiatry-- Normal mood and affect Skin- no acute rash or purpura laboratory and microbiology Laboratory Tests 09/18/24 08:07 Test 09/18/24 08:07 Range/Units Serum Glucose 89 74-106 mg/dL Problem List/Assessment/Plan Problem List/Assessment/Plan Hypertensive urgency --> resume home medication losartan 50 mg daily --> IV hydralazine 10 mg p.r.n. when systolic blood pressure is above 170 Atypical Chest pain --> negative troponins x3 --> EKG is unremarkable --> An echo -> recommend cardiology follow up outpatient Hypothyroidism --> TSH 2.4 --> continue levothyroxine Depression --> patient is supposed to children in his plan of one-week in January 17, 2024 --> recommend psychiatric visitation for evaluation --> possible medication readjustment or medication Obesity --> BMI 33 --> encouraged healthy diet with exercise Code status: full code Goal of care discussed for more than 20 minutes Case and plaN discussed with Dr. Barnett Plan discussed with: Patient My Orders My Orders Orders - BISMARK HANSEN Procedure Category Date Status Time Drug Screen LAB 09/18/24 Logged 09:00 Hydralazine Injection PHA 09/18/24 In Process (Apresoline Inject 11:00 Ibuprofen Tablet PHA 09/18/24 In Process (Motrin Tablet) 15:15 Date of Service: Sep 18, 2024 Billing Provider: DUNIA TRACY MD Common Visit Codes: [id number] INP/OBS CARE(HIGH) BISMARK HANSEN Sep 18, 2024 18:17 DUNIA TRACY MD Sep 18, 2024 22:39
[2024-09-18 19:17] VITALS: BP 145/65; PULSE 60; RESP 17; TEMP 97.7; O2SAT 99
[2024-09-18] MEDS: ACETAMINOPHEN 325 MG TAB PO PRN (20:18)
[2024-09-18 20:30] VITALS: PULSE 61; RESP 17; O2SAT 96
[2024-09-18 21:00] VITALS: BP 151/64; PULSE 61; RESP 17; TEMP 97.6; O2SAT 96
[2024-09-19] VITALS (8 sets, daily range): BP systolic 109–195; BP diastolic 51–72; PULSE 69–98; RESP 16–20; TEMP 97.6–98.5; O2SAT 95–100
[2024-09-19] MEDS: hydrALAZINE HCL 20 MG/ML VL IV PRN (00:14)
[2024-09-19] MEDS: LOSARTAN POTASSIUM 50 MG TAB PO ONE (11:19)
[2024-09-19] MEDS: IBUPROFEN 400 MG TAB PO PRN (13:09)
--- NOTE | 2024-09-19 13:31 | DVHSR ---
APPROVED REPORT EXAM: Two-dimensional and M-mode echocardiogram with Doppler and color Doppler. Blood Pressure: 165/72 mmHg INDICATION Chest Pain RISK FACTORS Height: 62, Weight: 182 DIMENSIONS LVDd4.5 (3.8-5.7cm)LA (2D)3.4 (1.9-4.0cm)Aortic Root3.1 (2.0-3.7cm) LVDs3.1 (2.5-4.0cm)LA (MM) (1.9-4.0cm)Aortic Cusp Exc1.4 (1.5-2.0cm) EF (%) 60.0 (55-70%)Rt. Atrium3.4 (1.9-4.0cm)Asc. Aorta cm Mitral Valve MitralMitral Stenosis E wave0.66m/sMV Mean GR.mmHg A wave0.89m/sMV Peak GR.mmHg E/A ratio0.72D MVAcm2 DECEL [id number] 1/2 [id number] IVRTmsDop MVA2.08cm2 Aortic Valve Aortic ValveAortic Stenosis V11.40m/Tevin Mean GR.7mmHg V21.91m/Tevin Peak GR.15mmHg LVOT Diameter1.7 (1.8-2.4cm)Doppler AVA1.66cm2 Pulmonic Valve V21.49m/s Tricuspid Valve TR Velocity1.82m/s [id number] Conclusion Normal left ventricular size and dimension. Normal left ventricular systolic function estimated ejec tion fraction 55%. There is a grade 1 diastolic dysfunction. Normal right ventricular size and dimension. Normal right ventricular systolic function. Normal biatrial size and dimension. Normal aortic valve structure and function. Normal mitral valve structure and function. Normal tricuspid valve function. The pulmonary valve is grossly normal. No pericardial effusion.
[2024-09-19] MEDS: NIFEdipine 10 MG CAP PO SCH (18:13)
--- NOTE | 2024-09-19 20:59 | DVHPNRES ---
Progress Note Date Seen: Sep 19, 2024 Resident Creating Document: BISMARK HANSEN RESIDENT Medical Necessity Reason Pt with a Central, PICC or Fol: No Subjective Review of Systems Seen and examined. Not in any acute distress. She continued to complain of occipital headache. Her BP at the time of my evaluation this morning was 165/73. She was given losartan yesterday that seem to have improved her blood pressure little bit; however, it became clear that patient needed an additional medication overnight as her she was hypertensive in the morning. Constitutional: Denies fever no chills no feeling of malaise HEENT: Mid headache; Denies ear pain, ear discharges, conjunctivitis, nasal discharge throat pain Cardiovascular: Mild chest pain;No palpitation, orthopnea, PND, or pedal edema Respiratory: Denies shortness of breath, cough cough, sputum production, hemoptysis, GI: Denies abdominal pain, nausea, vomiting, diarrhea, hematemesis, hematochezia, : Denies frequency, urgency, hematuria, Endocrine: Denies unintentional weight gain or weight loss, feeling of hot flashes, Kun: Denies easy bruising, bleeding disorders, epistaxis Musculoskeletal: Denies joint pains, muscle aches Psych: No evidence of depression, heather, suicidal ideation Objective vital signs Vital Sign Date Time Temp Pulse Resp B/P (MAP) Pulse Ox O2 Delivery O2 Flow Rate FiO2 09/19/24 18:13 142/66 09/19/24 16:45 97.9 74 17 96 97.9 09/19/24 07:30 Room Air* 0 21 Total Intake and Output 09/18/24 09/18/24 09/19/24 15:00 23:00 07:00 Intake Total 450 ml Output Total 0 ml Balance 0 ml 450 ml medications Current Medications Medications Dose Ordered Sig/Awais Route Start Time Stop Time Status Last Admin Dose Admin Sodium Chloride 10 ml Q8HR IV 09/17/24 14:00 09/19/24 14:29 10 ML Ondansetron HCl 4 mg Q4HP PRN IV 09/17/24 13:00 Docusate Sodium 100 mg BIDPRN PRN PO 09/17/24 13:00 Acetaminophen 650 mg Q6HP PRN PO 09/17/24 13:00 09/18/24 20:18 650 MG Morphine Sulfate 2 mg Q4HPRN PRN IV 09/17/24 13:00 Levothyroxine Sodium 25 mcg QAM@0600 PO 09/18/24 06:00 09/19/24 05:57 25 MCG Hydralazine HCl 10 mg Q6HP PRN IV 09/18/24 11:00 09/19/24 00:14 10 MG Ibuprofen 400 mg Q6HP PRN PO 09/18/24 15:15 09/19/24 13:09 400 MG Nifedipine 30 mg QPM PO 09/19/24 18:00 09/19/24 18:13 30 MG Losartan Potassium 50 mg DAILY PO 09/20/24 10:00 Examination General examination- Not in acute distress HEENT: PEERLA, no acute nasal discharge Chest: S1-S2 audible, rate and rhythm regular, no murmur Lung: CTAB, no wheeze or rhonchi Abdomen: Nondistend, BS+, nontenderness, no organomegaly Musculoskeletal: no acute joint swelling or tenderness Lower extremity: no leg edema Neurological: cranial nerves intact, no acute dysarthria or dysphagia Psychiatry-- Normal mood and affect Skin- no acute rash or purpura laboratory and microbiology Laboratory Tests 09/18/24 08:07 Test 09/18/24 08:07 Range/Units Serum Glucose 89 74-106 mg/dL Problem List/Assessment/Plan Problem List/Assessment/Plan Hypertensive urgency --> resume home medication losartan 50 mg daily --> Nifefipine 30mg pm --> IV hydralazine 10 mg p.r.n. when systolic blood pressure is above 170 Atypical Chest pain --> negative troponins x3 --> EKG is unremarkable --> An echo -> recommend cardiology follow up outpatient Hypothyroidism --> TSH 2.4 --> continue levothyroxine Depression --> patient is supposed to children in his plan of one-week in January 17, 2024 --> recommend psychiatric visitation for evaluation --> possible medication readjustment or medication Obesity --> BMI 33 --> encouraged healthy diet with exercise Code status: full code Goal of care discussed for more than 20 minutes Case and plan discussed with Dr. Barnett Plan discussed with: Patient My Orders My Orders Orders - BISMARK HANSEN Procedure Category Date Status Time Drug Screen LAB 09/19/24 Logged 06:44 Nifedipine Capsule PHA 09/19/24 In Process (Procardia Capsule) 18:00 Losartan Tablet PHA 09/20/24 In Process (Cozaar Tablet) 10:00 Date of Service: Sep 19, 2024 Billing Provider: DUNIA TRACY MD Common Visit Codes: 06938-[id number] INP/OBS CARE(HIGH) BISMARK HANSEN RESIDENT Sep 19, 2024 20:59 DUNIA TRACY MD Sep 20, 2024 09:12
[2024-09-20 01:00] VITALS: BP 139/57; PULSE 63; RESP 18; TEMP 97.7; O2SAT 95
[2024-09-20 05:00] VITALS: BP 77/44; PULSE 70; RESP 18; TEMP 97.5; O2SAT 94
[2024-09-20 08:00] VITALS: RESP 20
[2024-09-20 08:49] VITALS: BP 134/96; PULSE 68; RESP 18; TEMP 98; O2SAT 95
[2024-09-20] MEDS: LOSARTAN POTASSIUM 50 MG TAB PO SCH (09:56)
--- NOTE | 2024-09-20 11:54 | DVHDSRES ---
Discharge Summary Date of Admission Resident Creating Document: BISMARK HANSEN RESIDENT Sep 17, 2024 at 12:55 Date of Discharge: Sep 20, 2024 Admitting Diagnosis Hypertensive urgency headache atypical chest pain Labs/Diagnostic Data: Laboratory Results Test 09/18/24 08:07 09/17/24 10:30 09/17/24 07:39 White Blood Count 7.6 10^3/uL (4.4-10.8) Red Blood Count 4.49 10^6/uL (4.0-5.20) Hemoglobin 14.0 g/dL (12.2-16.2) Hematocrit 41.2 % (36.0-46.0) Mean Corpuscular Volume 91.7 fL (80.0-100.0) Mean Corpuscular Hemoglobin 31.1 pg (28.0-32.0) Mean Corpuscular Hemoglobin Concent 33.9 g/dL (32.0-36.0) Red Cell Distribution Width 13.7 % (11.8-14.3) Platelet Count 327 10^3/uL (140-450) Mean Platelet Volume 9.3 fL (6.9-10.8) Neutrophils (%) (Auto) 59.5 % (37.0-80.0) Lymphocytes (%) (Auto) 33.0 % (10.0-50.0) Monocytes (%) (Auto) 5.7 % (0.0-12.0) Eosinophils (%) (Auto) 1.4 % (0.0-7.0) Basophils (%) (Auto) 0.4 % (0.0-2.0) Neutrophils # (Auto) 4.5 10 ^3/uL (1.6-8.6) Lymphocytes # (Auto) 2.5 10 ^3/uL (0.4-5.4) Monocytes # (Auto) 0.4 10 ^3/uL (0-1.3) Eosinophils # (Auto) 0.1 10 ^3/uL (0-0.8) Basophils # (Auto) 0 10 ^3/uL (0-0.2) Nucleated Red Blood Cells 0.1 % Sodium Level 141 mmol/L (136-145) Potassium Level 3.9 mmol/L (3.5-5.1) Chloride Level 107 mmol/L (98-107) Carbon Dioxide Level 27 mmol/L (20-31) Anion Gap 7 (5-15) Blood Urea Nitrogen 17 mg/dL (9-23) Creatinine 0.78 mg/dL (0.550-1.02) Glomerular Filtration Rate Calc 86 mL/min (>90) BUN/Creatinine Ratio 21.8 (10.0-20.0) Serum Glucose 89 mg/dL (74-106) Calcium Level 10.1 mg/dL (8.7-10.4) Total Bilirubin 1.0 mg/dL (0.2-1.0) Aspartate Amino Transferase (AST) 12 U/L (13-40) Alanine Aminotransferase (ALT) 33 U/L (7-40) Alkaline Phosphatase 60 U/L (46-116) Total Protein 7.8 g/dL (5.7-8.2) Albumin 4.7 g/dL (3.2-4.8) Thyroid Stimulating Hormone (TSH) 2.41 uIU/mL (0.55-4.78) Troponin I High Sensitivity 3 ng/L (</=34) Urine Color Light-yellow (Yellow) Urine Clarity Clear (Clear) Urine pH 5.0 (5.0-9.0) Urine Specific [place] 1.016 (1.001-1.035) Urine Protein Negative (Negative) Urine Ketones Negative (Negative) Urine Blood Trace /uL (Negative) Urine Nitrite Negative (Negative) Urine Bilirubin Negative (Negative) Urine Urobilinogen Normal mg/dL (Negative) Urine Leukocyte Esterase Negative /uL (Negative) Urine RBC 1 /hpf (0 - 4) Urine WBC 1 /hpf (0 - 5) Urine Squamous Epithelial Cells Few /hpf (<5) Urine Bacteria Few /hpf (None Seen) Urine Mucus Few (None Seen) Urine Glucose Normal mg/dL (Normal) Other Laboratory Tests 09/18/24 08:07 Brief Hx & Hospital Course: This is a 59-year-old female with a past medical history of hypertension, hypothyroidism, and depression who presented to the ED after noticing her BP in the 200s with an associated headache and chest pain. Patient described the headache located in the occipital region. Chest pain described as pressure-like sensation and rated 7/10. Patient acknowledged that she has been having chest pain since December of this year. She has not seen a polishing pad mounter or followed up with a primary care physician. In the ED, her vitals were temperature 98, pulse; 60, RR: 16 and BP: 177/82---> 201/77. At the time of my visit, patient's BP: 159/63. CBC, CMP and troponin were unremarkable and EKG did not reveal any evidence of ST elevation or ST depression. Patient received losartan 50 mg a but that did not seem to control he BP as she developed BP over night. We therefore added nifedipine to her medication list. Overnight blood reading showed the improvement in BP. Patient discharged home today with a one month supply losartan and nifedipine. Patient advised to maintain a BP diary for the next month. Advised to come to he discharge clinic and follow up with her PCP. Operations or Procedures ORDERING PHYSICIAN: CHACORTA SIGALA MD PROCEDURE(s): HWOCT - HEAD WITHOUT CONTRAST REASON: htn, near syncope ORDER NUMBER(s): [id number], ACCESSION NUMBER(s): [id number] EXAM: CT HEAD WITHOUT CONTRAST INDICATION: htn, near syncope TECHNIQUE: CT of the head without intravenous contrast. Coronal and sagittal reformatted images are submitted. Radiation Dose : 1. Head: CT Dose: CTDI volume is 58.69 mGy. Dose-length product is 1039.07 mGy*cm The dose indicators for CT are the volume Computed Tomography (CT) Dose Index (CTDIvol) and the Dose Length Product (DLP), and are measured in units of mGy and mGy-cm, respectively. These indicators are not patient dose, but values generated from the CT scanner acquisition factors. The report includes radiation exposure data for exposures received during this examination. All CT scans at this medical facility are performed using dose modulation techniques as appropriate to a performed exam including the following: Automated exposure control was utilized; adjustment of the MA and/or KV according to patient size; and use of iterative reconstruction technique. COMPARISON: BRAIN HEAD WO CONTRAST on DOS: 02/27/21 FINDINGS: There is no evidence of acute intracranial hemorrhage, extra-axial collection, mass effect, midline shift, herniation or hydrocephalus. The ventricles, sulci and cisterns are age appropriate. The garcía-white differentiation is intact. The visualized paranasal sinuses and mastoid air cells are clear. No depressed calvarial fracture. The surrounding soft tissues are unremarkable. IMPRESSION: 1. No evidence of acute intracranial abnormality. ATED BY: CARMELINA WHALEN MD DICTATED DATE/TIME: 09/17/24 0733 ORDERING PHYSICIAN: CHACORTA SIGALA MD PROCEDURE(s): CXR2 - CHEST TWO VIEWS ROUTINE REASON: htn, near syncope ORDER NUMBER(s): [id number], ACCESSION NUMBER(s): [id number] CHEST TWO VIEWS ROUTINE CLINICAL HISTORY: htn, near syncope COMPARISON: XY CHEST TWO VIEWS ROUTINE on DOS: 06/28/23 TECHNIQUE: Frontal and lateral view of the chest was obtained FINDINGS: Lines and Tubes: None Lungs: No focal consolidation. Pleura: No effusion. No pneumothorax. Cardiomediastinal contours: Unremarkable Bones: No acute osseous abnormality. IMPRESSION: 1. No acute cardiopulmonary disease. ATED BY: CARMELINA WHALEN MD DICTATED DATE/TIME: 09/17/24 0737 Condition at Discharge: Good Final Diagnosis/Problems List Hypertensive urgency depression atypical chest pain headache Obesity obesity Discharge Disposition: Home Discharge Instruct/Medications Diet: Regular Activity: No Restrictions, As Tolerated Follow Up/Referral: 7 days at the discharge clinic Medications: losartan nifedipine Discharge Statement: "Patient was advised to return to the ER or call 911 if any headaches, dizziness, shortness of breath, chest pain, abdominal pain, bleeding, fevers, or worsening of medical condition. Patient was counseled about treatment plan, medications, possible side effects, patientverbalized understanding. All questions were answered to the best of my ability. This discharge took greater then 30 minutes in planning, reviewing documentation, counseling the patient, and discussing with other team members." ASSESSMENT ASSESSMENT Assessment Hypertensive urgency depression atypical chest pain headache obesity Date of Service: Sep 20, 2024 Billing Provider: DUNIA TRACY MD Common Visit Codes: 89244-OHV/OBS DISCH DAY >30min BISMARK HANSEN Sep 20, 2024 11:54 DUNIA TRACY MD Sep 22, 2024 09:22
[2024-09-20 12:55] VITALS: BP 139/66; PULSE 60; RESP 18; TEMP 98.1; O2SAT 96
[2024-09-20] MEDS ORDERED: LOSA-534 PO (13:22)
[2024-09-20] MEDS ORDERED: NIFE1TAB31 PO (13:22)
[2024-09-20 13:47] VITALS: BP 134/96
== END 2024-09-20 15:30 | disposition home or self-care (01) | DRG 305 ==
LOC: ER 05:27 → OVERFLOW 12:55 → WEST WING 09-18 18:08
PROVIDERS: ADMIT Student in an Organized Health Care Education/Training Program; ATTEND Student in an Organized Health Care Education/Training Program
DX: I16.0 Hypertensive urgency (principal); E03.9 Hypothyroidism, unspecified; R42 Dizziness and giddiness; E66.9 Obesity, unspecified; Z68.33 Body mass index [BMI] 33.0-33.9, adult; F41.9 Anxiety disorder, unspecified; G43.909 Migraine, unspecified, not intractable, without status migrainosus; F32.A Depression, unspecified
CPT/HCPCS: 36415; 70450; 71046; 80048; 80053; 81001; 84443; 84484; 85025; 93005; 93306; 99291; G0378

== ENCOUNTER 2025-01-21 10:20 | Inpatient (IN) | payer MEDICARE, MEDICAID ==
[~2025-01-21] VITALS: Ht 160 cm; Wt 79.9 kg
[~2025-01-21 10:20] MED LIST changes: +LEVO25TA6 PO; +LOSA-534 PO; +NIFE1TAB31 PO
--- NOTE | 2025-01-21 11:14 | ED.PDOC ---
GI ASSESSMENT HPI Comments 59 y/o F, with PMHX of HTN and Anxiety presents to the ED for CC of abdominal pain. Patient states, that she has been experiencing diffuse abdominal pain [id number]. Patient relays, that she was placed on various medications by her PCP to alleviate her symptoms however, feels as if symptoms have worsened since starting medications. Patient denies vomiting, diarrhea, constipation, or fever. No others symptoms or modifying factors at this time. Chief Complaint: Abdominal Pain Time Seen by MD: 10:45 Primary Care Provider: pt does not know Reviewed Notes: Nurses Notes, Medications, Allergies Allergies: Coded Allergies: No Known Drug Allergy (Verified Allergy, Unknown, 03/23/20) Home Meds Active Scripts Losartan Potassium (Losartan Potassium) 50 Mg Tab, 50 MG PO DAILY for 30 Days, #30 TAB Prov:BISMARK HANSEN RESIDENT 09/20/24 Nifedipine (Nifedipine Er) 30 Mg Tab, 1 TAB PO QPM for 30 Days, #30 TAB 1 Refill Prov:BISMARK HANSEN RESIDENT 09/20/24 Dicyclomine Hcl (BENTYL CAPSULE) 10 Mg Cp, 2 CAP PO Q6HPRN, #30 CAP 3 Refills prn abdomnal pain Prov:LIT ALMARAZ MD 03/12/24 Acetaminophen (Tylenol Extra Strength) 500 Mg Tab, 1000 MG PO Q6HP PRN, #30 TAB Prov:LIT ALMARAZ MD 03/12/24 Pantoprazole Sodium Sesquihydr (Protonix) 40 Mg Tab, 40 MG PO DAILY, #30 TAB Prov:LIT ALMARAZ MD 03/12/24 Metronidazole (Flagyl) 500 Mg Tab, 1 TAB PO TID for 10 Days, #30 TAB Prov:LIT ALMARAZ MD 03/12/24 Ciprofloxacin Hcl (Cipro) 500 Mg Tab, 1 TAB PO BID for 10 Days, #20 TAB Prov:LIT ALMARAZ MD 03/12/24 Pantoprazole Sodium Sesquihydr (Pantoprazole Sodium) 40 Mg Tab, 40 MG PO DAILY, #30 TAB Prov:DAYDAY OROZCO MD 06/30/23 Losartan Potassium (Losartan Potassium) 25 Mg Tab, 1 TAB PO DAILY, #90 TAB 1 Refill Prov:DAYDAY OROZCO MD 06/30/23 Clindamycin Hcl (Clindamycin Hcl) 300 Mg Cap, 300 MG PO TID for 7 Days, #21 CAP Prov:NUPUR MCGEE MD 11/09/21 Reported Medications Losartan Potassium (Losartan Potassium) 50 Mg Tab, 1 TAB PO DAILY 09/17/24 Levothyroxine Sodium (Levothyroxine Sodium) 25 Mcg Tab, 1 TAB PO DAILY 09/17/24 Information Source: Patient Mode of Arrival: Ambulatory Timing: Days Duration: Since onset Prehospital treatment: None Quality: None Vomitus: None Stool: Normal Severity: Moderate Recent: None Recent Hx of: None Pain Location: Diffuse Modifying Factors: Nothing Associated sign and symptoms: Nausea Past Medical History PAST MEDICAL HISTORY: Anxiety, HTN, Thyroid Surgical History: Denies all surgeries 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[employer]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 AUTOM[employer]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[employer]IC SUPERVISOR History Family History Family History: Reviewed,noncontributory to illness Social History Smoker: Non-Smoker Alcohol: Denies ETOH Use Drugs: Denies Drug Use Lives In: Home Constitutional: denies: chills, diaphoresis, fatigue, fever, malaise, sweats, weakness, others EENTM: denies: blurred vision, double vision, ear bleeding, ear discharge, ear drainage, ear pain, ear ringing, eye pain, eye redness, hearing loss, mouth pain, mouth swelling, nasal discharge, nose bleeding, nose congestion, nose pain, photophobia, tearing, throat pain, throat swelling, voice changes, others Respiratory: denies: cough, hemoptysis, orthopnea, SOB at rest, shortness of breath, SOB with excertion, stridor, wheezing, others Cardiovascular: denies: chest pain, dizzy spells, diaphoresis, Dyspnea on exertion, edema, irregular heart beat, left arm pain, lightheadedness, palpitations, PND, syncope, others Gastrointestinal: reports: abdominal pain, nausea; denies: abdomen distended, blood streaked bowels, constipated, diarrhea, dysphagia, difficulty swallowing, hematemesis, melena, poor appetite, poor fluid intake, rectal bleeding, rectal pain, vomiting, others Genitourinary: denies: abnormal vagina bleeding, burning, dyspareunia, dysuria, flank pain, frequency, hematuria, incontinence, pain, , vagina discharge, urgency, others Neurological: denies: dizziness, fainting, headache, left sided numbness, left sided weakness, numbness, paresthesia, pre-existing deficit, right sided numbness, right sided weakness, seizure, speech problems, tingling, tremors, weakness, others Musculoskeletal: denies: back pain, gout, joint pain, joint swelling, muscle pain, muscle stiffness, neck pain, others Integumetry: denies: bruises, change in color, change in hair/nails, dryness, laceration, lesions, lumps, rash, wounds, others Allergic/Immunocompromised: denies: Difficulty Healing, Frequent Infections, Hives, Itching, others Hematologic/Lymphatic: denies: anemia, blood clots, easy bleeding, easy bruising, swollen glands, others Endocrine: denies: excessive hunger, excessive sweating, excessive thirst, excessive urination, flushing, intolerance to cold, intolerance to heat, unexplained weight gain, unexplained weight loss, others Psychiatric: denies: anxiety, bipolar disorder, depression, hopeless, panic disorder, schizophrenia, sleepless, suicidal, others All Other Systems: Reviewed and Negative Physical Exam General Appearance: Moderate Distress HEENT: Normal ENT Inspection, Pharynx Normal, TMs Normal Neck: Full Range of Motion, Non-Tender, Normal, Normal Inspection Respiratory: Chest Non-Tender, Lungs Clear, No Accessory Muscle Use, No Respiratory Distress, Normal Breath Sounds Cardiovascular: No Edema, No JVD, No Murmur, No Gallop, Normal Peripheral Pulses, Regular Rate/Rhythm Breast Exam: Deferred Gastrointestinal: No Organomegaly, Non Tender, No Pulsatile Mass, Normal Bowel Sounds, Soft Genitalia: Deferred Pelvic: Deferred Rectal: Deferred Extremities: No calf tenderness, Normal capillary refill, Normal inspection, Normal range of motion, Non-tender, No pedal edema Musculoskeletal : Apperance: Normal Neurologic: Alert, mail service coordinator II-XII nml as Tested, No Motor Deficits, Normal Affect, Normal Mood, No Sensory Deficits Cerebellar Function: NOT DONE Reflexes: NOT DONE Skin: Dry, Normal Color, Warm Peripheral Pulses: 3+ Radial (R), 3+ Radial (L) Lymphatic: No Adenopathy Was a procedure done? Was a procedure done?: No GI differential Dx Differential Diagnosis: Constipation, Diverticular disease, Esophagitis, Gastritis/PUD, Gastroenteritis, Electrolyte Imbalance, Food Poisoning, Bacterial, Viral X-Ray, Labs, Meds, VS Vital Signs Date Time Temp Pulse Resp B/P (MAP) Pulse Ox O2 Delivery O2 Flow Rate FiO2 01/21/25 10:45 60 01/21/25 10:34 97.9 69 19 188/91 (123) 99 97.9 Lab Test 01/21/25 12:30 01/21/25 11:08 Range/Units Urine Color Light-yellow Yellow Urine Clarity Clear Clear Urine pH 7.0 5.0-9.0 Urine Specific [place] 1.012 1.001-1.035 Urine Protein Negative Negative Urine Ketones Negative Negative Urine Blood Negative Negative /uL Urine Nitrite Negative Negative Urine Bilirubin Negative Negative Urine Urobilinogen Normal Negative mg/dL Urine Leukocyte Esterase 1+ Negative /uL Urine RBC 2 0 - 4 /hpf Urine Microscopic WBC 2 0-5 /HPF Urine Squamous Epithelial Cells Few <5 /hpf Urine Bacteria None seen None Seen /hpf Urine Glucose Normal Normal mg/dL White Blood Count 11.5 H 4.4-10.8 10^3/uL Red Blood Count 4.36 4.0-5.20 10^6/uL Hemoglobin 13.5 12.2-16.2 g/dL Hematocrit 40.0 36.0-46.0 % Mean Corpuscular Volume 91.7 80.0-100.0 fL Mean Corpuscular Hemoglobin 31.0 28.0-32.0 pg Mean Corpuscular Hemoglobin Concent 33.8 32.0-36.0 g/dL Red Cell Distribution Width 13.2 11.8-14.3 % Platelet Count 337 140-450 10^3/uL Mean Platelet Volume 9.3 6.9-10.8 fL Neutrophils (%) (Auto) 73.9 37.0-80.0 % Lymphocytes (%) (Auto) 20.0 10.0-50.0 % Monocytes (%) (Auto) 4.3 0.0-12.0 % Eosinophils (%) (Auto) 1.2 0.0-7.0 % Basophils (%) (Auto) 0.6 0.0-2.0 % Neutrophils # (Auto) 8.5 1.6-8.6 10 ^3/uL Lymphocytes # (Auto) 2.3 0.4-5.4 10 ^3/uL Monocytes # (Auto) 0.5 0-1.3 10 ^3/uL Eosinophils # (Auto) 0.1 0-0.8 10 ^3/uL Basophils # (Auto) 0.1 0-0.2 10 ^3/uL Nucleated Red Blood Cells 0.0 % Sodium Level 138 136-145 mmol/L Potassium Level 4.5 3.5-5.1 mmol/L Chloride Level 102 98-107 mmol/L Carbon Dioxide Level 27 20-31 mmol/L Anion Gap 9 5-15 Blood Urea Nitrogen 17 9-23 mg/dL Creatinine 0.79 0.550-1.02 mg/dL Glomerular Filtration Rate Calc 85 >90 mL/min BUN/Creatinine Ratio 21.5 H 10.0-20.0 Serum Glucose 105 74-106 mg/dL Calcium Level 10.4 8.7-10.4 mg/dL Troponin I High Sensitivity 3 L </=34 ng/L Patient alert. Complaining of suprapubic discomfort. Has been many days since he has been feeling like this. Vitals stable. Urinalysis shows UTI. Tried many medications without any help. WBC elevated pain Establish intravenous access. Was given fluids. Was given Rocephin. Sepsis from urinary tract infection. Reviewed her history. Explained to the patient. Continue cardiac monitoring. Time of 1ST Reevaluation: 11:15 Reevaluation 1ST: Unchanged Patient Education/Counseling: Diagnosis, Treatment Family Education/Counseling: No Family Present Departure 1 Departure Time of Disposition: 13:31 Impression: Primary Impression: Sepsis due to urinary tract infection Disposition: ADMITTED INPATIENT Admit to: Med Surg Condition: Guarded Critical Care Note Critical Care Time?: No Stability Stability form required: No Heart Score Heart Score: Heart Score Response (Comments) Value History N/A 0 EKG N/A 0 Age N/A 0 Risk Factors N/A 0 Troponin N/A 0 Total 0 I personally scribed for NUPUR MCGEE MD ([email or web address]) on 01/21/25 at 11:14. Electronically submitted by Mindy Koch ([email or web address]). NUPUR MCGEE MD Jan 21, 2025 11:14
[2025-01-21 11:22] LABS: Basophils # (auto) 0.1 10 ^3/uL (0-0.2); Basophils % (auto) 0.6 % (0.0-2.0); Eosinophils # (auto) 0.1 10 ^3/uL (0-0.8); Eosinophils % (auto) 1.2 % (0.0-7.0); Hemoglobin 13.5 g/dL (12.2-16.2); Lymphocytes # (auto) 2.3 10 ^3/uL (0.4-5.4); Mean Corpuscular Hgb Conc. 33.8 g/dL (32.0-36.0); Mean Corpuscular Volume 91.7 fL (80.0-100.0); Monocytes # (auto) 0.5 10 ^3/uL (0-1.3); Monocytes % (auto) 4.3 % (0.0-12.0); Neutrophils # (auto) 8.5 10 ^3/uL (1.6-8.6); Neutrophils % (auto) 73.9 % (37.0-80.0); Platelet Count (auto) 337 10^3/uL (140-450); Red Blood Cells 4.36 10^6/uL (4.0-5.20); Red Cell Distribution Width 13.2 % (11.8-14.3); White Blood Cell 11.5 10^3/uL (4.4-10.8)
[2025-01-21 11:36] LABS: Chloride 102 mmol/L (98-107); Potassium 4.5 mmol/L (3.5-5.1); Sodium 138 mmol/L (136-145)
[2025-01-21 11:37] LABS: Anion Gap 9 (5-15); Carbon Dioxide 27 mmol/L (20-31)
[2025-01-21 11:40] LABS: Calcium 10.4 mg/dL (8.7-10.4)
[2025-01-21 11:42] LABS: BUN/Creatinine Ratio 21.5 (10.0-20.0); Blood Urea Nitrogen 17 mg/dL (9-23); Glucose 105 mg/dL (74-106)
[2025-01-21 12:49] LABS: Urine Bacteria None Seen /hpf (None Seen)
[2025-01-21 12:57] LABS: Urine Blood Negative /uL (Negative); Urine Clarity Clear (Clear); Urine Color Light-Yellow (Yellow); Urine Protein, UAD Negative (Negative); Urine Specific Gravity 1.012 (1.001-1.035); Urine Squamous Epithelial Cell FEW /hpf (<5); Urine Urobilinogen Normal (Negative); Urine WBC 2 /HPF (0-5)
[2025-01-21 14:28] VITALS: PULSE 60; RESP 20; O2SAT 98
[2025-01-21] MEDS: cefTRIAXone 1GM/50ML D5W 50 ML IV ONE (14:31)
[2025-01-21] MEDS: SODIUM CHLORIDE 0.9% 1,000 ML IV ONE (14:32)
--- NOTE | 2025-01-21 15:40 | DVHHP2 ---
Review of Systems Allergies: Coded Allergies: No Known Drug Allergy (Verified Allergy, Unknown, 03/23/20) Exam Vital Signs Vital Signs Date Time Temp Pulse Resp B/P (MAP) Pulse Ox O2 Delivery O2 Flow Rate FiO2 01/21/25 14:28 60 20 98 Room Air* 0 21 01/21/25 14:27 97.6 159/92 (114) 97.6 Labs/Xrays Labs Test 01/21/25 12:30 01/21/25 11:08 Range/Units Urine Color Light-yellow Yellow Urine Clarity Clear Clear Urine pH 7.0 5.0-9.0 Urine Specific [place] 1.012 1.001-1.035 Urine Protein Negative Negative Urine Ketones Negative Negative Urine Blood Negative Negative /uL Urine Nitrite Negative Negative Urine Bilirubin Negative Negative Urine Urobilinogen Normal Negative mg/dL Urine Leukocyte Esterase 1+ Negative /uL Urine RBC 2 0 - 4 /hpf Urine Microscopic WBC 2 0-5 /HPF Urine Squamous Epithelial Cells Few <5 /hpf Urine Bacteria None seen None Seen /hpf Urine Glucose Normal Normal mg/dL White Blood Count 11.5 H 4.4-10.8 10^3/uL Red Blood Count 4.36 4.0-5.20 10^6/uL Hemoglobin 13.5 12.2-16.2 g/dL Hematocrit 40.0 36.0-46.0 % Mean Corpuscular Volume 91.7 80.0-100.0 fL Mean Corpuscular Hemoglobin 31.0 28.0-32.0 pg Mean Corpuscular Hemoglobin Concent 33.8 32.0-36.0 g/dL Red Cell Distribution Width 13.2 11.8-14.3 % Platelet Count 337 140-450 10^3/uL Mean Platelet Volume 9.3 6.9-10.8 fL Neutrophils (%) (Auto) 73.9 37.0-80.0 % Lymphocytes (%) (Auto) 20.0 10.0-50.0 % Monocytes (%) (Auto) 4.3 0.0-12.0 % Eosinophils (%) (Auto) 1.2 0.0-7.0 % Basophils (%) (Auto) 0.6 0.0-2.0 % Neutrophils # (Auto) 8.5 1.6-8.6 10 ^3/uL Lymphocytes # (Auto) 2.3 0.4-5.4 10 ^3/uL Monocytes # (Auto) 0.5 0-1.3 10 ^3/uL Eosinophils # (Auto) 0.1 0-0.8 10 ^3/uL Basophils # (Auto) 0.1 0-0.2 10 ^3/uL Nucleated Red Blood Cells 0.0 % Sodium Level 138 136-145 mmol/L Potassium Level 4.5 3.5-5.1 mmol/L Chloride Level 102 98-107 mmol/L Carbon Dioxide Level 27 20-31 mmol/L Anion Gap 9 5-15 Blood Urea Nitrogen 17 9-23 mg/dL Creatinine 0.79 0.550-1.02 mg/dL Glomerular Filtration Rate Calc 85 >90 mL/min BUN/Creatinine Ratio 21.5 H 10.0-20.0 Serum Glucose 105 74-106 mg/dL Calcium Level 10.4 8.7-10.4 mg/dL Troponin I High Sensitivity 3 L </=34 ng/L Assessment/Plan Assessment/Plan acute intractable abdominal pain ordered ct scan abd pelvis npo for now ivf ordered morphine as needed for pain acute leukocytosis ordered ppx antibotics ceftriaxone and flagyl for now chronic problems htn anxiety hypothyroidism fen/ppx npo ivf protonix lovenox scd plan admit to medicine MARBELLA HUNT DNP Jan 21, 2025 15:40
[2025-01-21 23:28] VITALS: PULSE 59; RESP 21; O2SAT 94
[2025-01-21] MEDS: MORPHINE SULFATE 4 MG/ML SYR/VIAL IV ONE (23:37)
[2025-01-21] MEDS: ONDANSETRON HCL 4 MG/2 ML VIAL IV ONE (23:37)
[2025-01-21] MEDS: ONDANSETRON HCL 4 MG/2 ML VIAL ONE (23:38)
[2025-01-21] MEDS: MORPHINE SULFATE 4 MG/ML SYR/VIAL ONE (23:38)
[2025-01-22] MEDS: cefTRIAXone 1GM/50ML D5W 50 ML IV ONE (07:14)
--- NOTE | 2025-01-22 07:18 | ECG ---
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
[2025-01-22 07:45] VITALS: PULSE 48; RESP 13; O2SAT 96
--- NOTE | 2025-01-22 09:55 | DVH ---
CT ABDOMEN AND PELVIS WITHOUT CONTRAST CLINICAL HISTORY: ABD PAIN TECHNIQUE: Multiple contiguous axial images of the abdomen and pelvis without intravenous contrast. T he images were reformatted degenerate coronal and sagittal reconstructions. All CT scans at this medical facility are performed using dose modulation techniques as appropriate t o a performed exam including the following:Automated exposure control was utilized; adjustment of the MA and/or KV according to patient size; and use of iterative reconstruction technique. Radiation Dose Information: CT Dose: CTDI volume is 13.57 mGy. Dose-length product is 763.79 mGy*cm Comparison: CT CT AB PEL WO CON-NO ORAL OR IV on DOS: 03/11/24 FINDINGS: Evaluation of the abdomen and pelvis is limited without intravenous contrast. The liver, gallbladder, pancreas, kidneys, adrenal glands, and spleen appear within normal limits. There is no gross evidence of abdominal lymphadenopathy. There is no free fluid or free air. The stomach grossly appears unremarkable. The small and large bowel loops demonstrate normal caliber . A normal appearing appendix is seen in the right lower quadrant abdomen. There are diverticula in the distal colon without evidence of acute diverticulitis. The abdominal aorta and IVC appear within normal limits. The bladder appears unremarkable for the degree of distention. Pelvic organ appears within normal lloyd its. There is no gross evidence of a pelvic mass. There is no free fluid collection. Lung bases are clear. There is small pericardial effusion. There is no acute osseous abnormality. IMPRESSION: 1. There is no acute process in the abdomen and pelvis. 2. Distal colon diverticulosis without evidence of acute diverticulitis. HS:Y
[2025-01-22] MEDS: PANTOPRAZOLE 40 MG/10 ML VIAL INJ IV ONE (12:30)
[2025-01-22] MEDS ORDERED: HYDR-3682 PO (16:13)
[2025-01-22] MEDS ORDERED: NAP500T PO (16:13)
[2025-01-22] MEDS ORDERED: MAGN400T40 PO (16:13)
[2025-01-22] MEDS ORDERED: ACETAMINOPHEN 325 MG TAB PO PRN (16:15)
[2025-01-22] MEDS ORDERED: ONDANSETRON HCL 4 MG/2 ML VIAL IV PRN (16:15)
[2025-01-22] MEDS ORDERED: DOCUSATE SOD 100 MG CAP PO PRN (16:15)
[2025-01-22] MEDS ORDERED: NAPROXEN 500 MG TAB PO PRN (16:15)
[2025-01-22] MEDS ORDERED: NITROGLYCERIN 0.4 MG SL TAB SL PRN (16:15)
[2025-01-22] MEDS ORDERED: MORPHINE SULFATE INJ 2 MG/ml SYRG IV PRN (16:15)
[2025-01-22] MEDS ORDERED: LOSA100T33 PO (16:19)
[2025-01-22] MEDS ORDERED: hydrOXYzine 25 MG TAB or CAP PO PRN (16:30)
--- NOTE | 2025-01-22 16:30 | DVHHP2 ---
History of Present Illness Reason for Visit: Abdominal pain History of Present Illness Edith Perez is a 59-year-old female with past medical history of hypertension, anxiety, and hypothyroidism, who came in for abdominal pain. Patient states she came in for epigastric pain yesterday. The pain has since moved to her entire abdomen, around her back and to her chest. She states she is nervous about her hypertension because at home it gets very high and she has multiple family members from strokes. Cardiovascular: HTN Psych: Anxiety Endocrine: Hypothyroidism Past Surgical History: None Smoke: No ALCOHOL: none Drugs: None Lives: with Family Domestic Violence: Neg Review of Systems Constitutional: No: Fever, Chills, Sweats, Weakness, Malaise, Other Eyes: No: Pain, Vision change, Conjunctivae inflammation, Eyelid inflammation, Other, Redness ENT: No: Ear pain, Ear discharge, Nose pain, Nose discharge, Nose congestion, Mouth pain, Mouth swelling, Throat pain, Throat swelling, Other Respiratory: No: Cough, Dry, Shortness of breath, SOB with excertion, Wheezing, Hemoptysis, Pleuritic Pain, Sputum, Wheezing, Other Cardiovascular: No: Chest Pain, Palpitations, Orthopnea, Paroxysmal Noc. Dyspnea, Edema, Lt Headedness, Other Gastrointestinal: Nausea, Abdominal Pain; No: Vomiting, Diarrhea, Constipation, Melena, Hematochezia, Other Genitourinary: No Dysuria, No Frequency, No Incontinence, No Hematuria, No Retention, No Other Musculoskeletal: No: other, neck pain, shoulder pain, arm pain, back pain, hand pain, leg pain, foot pain Skin: No: Rash, Lesions, Jaundice, Bruising, Other Neurological: No: Weakness, Numbness, Incoordination, Change in speech, Confusion, Seizures, Other Allergies: Coded Allergies: No Known Drug Allergy (Verified Allergy, Unknown, 03/23/20) Medications Current Medications Medications Dose Ordered Sig/Awais Route Start Time Stop Time Status Last Admin Dose Admin Sodium Chloride 10 ml Q8HR IV 01/22/25 22:00 UNV Acetaminophen/ Hydrocodone Bitart 1 tab Q4HP PRN PO 01/22/25 16:15 UNV Ondansetron HCl 4 mg Q4HP PRN IV 01/22/25 16:15 UNV Docusate Sodium 100 mg BIDPRN PRN PO 01/22/25 16:15 UNV Acetaminophen 650 mg Q6HP PRN PO 01/22/25 16:15 UNV Nitroglycerin 0.4 mg Q5MINP PRN SL 01/22/25 16:15 UNV Morphine Sulfate 2 mg Q30M PRN IV 01/22/25 16:15 UNV Levothyroxine Sodium 25 mcg DAILY PO 01/23/25 10:00 UNV Nifedipine 30 mg QPM PO 01/22/25 18:00 UNV Naproxen 500 mg BIDPRN PRN PO 01/22/25 16:15 UNV Patient Own Medication 1 tab TIDPRN PRN PO 01/22/25 16:15 UNV Patient Own Medication 1 tab DAILY PO 01/23/25 10:00 UNV Exam Vital Signs Vital Signs Date Time Temp Pulse Resp B/P (MAP) Pulse Ox O2 Delivery O2 Flow Rate FiO2 01/22/25 12:00 53 01/22/25 10:30 12 142/64 (90) 96 01/22/25 07:45 Room Air* 0 21 01/22/25 07:45 97.7 97.7 General Appearance: Alert, Oriented X3, Cooperative, mild distress HEENT: Atraumatic, PERRLA Respiratory: Clear to auscultation, Normal air movement Cardiovascular: Normal S1, Normal S2, Other (SB) Abdominal: Normal bowel sounds, Soft, Other (C/O epigastric pain) Extremities: No clubbing, No cyanosis, No edema, Normal pulses, No tenderness/s welling Skin: No rashes, No breakdown Neuro: Normal gait, Normal speech, Strength at 5/5 X4 ext Psych/Mental Status: Mental status NL, Mood NL Labs/Xrays Labs Test 01/22/25 10:50 01/21/25 12:30 01/21/25 11:08 Range/Units Troponin I High Sensitivity 3 L </=34 ng/L Urine Color Light-yellow Yellow Urine Clarity Clear Clear Urine pH 7.0 5.0-9.0 Urine Specific [place] 1.012 1.001-1.035 Urine Protein Negative Negative Urine Ketones Negative Negative Urine Blood Negative Negative /uL Urine Nitrite Negative Negative Urine Bilirubin Negative Negative Urine Urobilinogen Normal Negative mg/dL Urine Leukocyte Esterase 1+ Negative /uL Urine RBC 2 0 - 4 /hpf Urine Microscopic WBC 2 0-5 /HPF Urine Squamous Epithelial Cells Few <5 /hpf Urine Bacteria None seen None Seen /hpf Urine Glucose Normal Normal mg/dL White Blood Count 11.5 H 4.4-10.8 10^3/uL Red Blood Count 4.36 4.0-5.20 10^6/uL Hemoglobin 13.5 12.2-16.2 g/dL Hematocrit 40.0 36.0-46.0 % Mean Corpuscular Volume 91.7 80.0-100.0 fL Mean Corpuscular Hemoglobin 31.0 28.0-32.0 pg Mean Corpuscular Hemoglobin Concent 33.8 32.0-36.0 g/dL Red Cell Distribution Width 13.2 11.8-14.3 % Platelet Count 337 140-450 10^3/uL Mean Platelet Volume 9.3 6.9-10.8 fL Neutrophils (%) (Auto) 73.9 37.0-80.0 % Lymphocytes (%) (Auto) 20.0 10.0-50.0 % Monocytes (%) (Auto) 4.3 0.0-12.0 % Eosinophils (%) (Auto) 1.2 0.0-7.0 % Basophils (%) (Auto) 0.6 0.0-2.0 % Neutrophils # (Auto) 8.5 1.6-8.6 10 ^3/uL Lymphocytes # (Auto) 2.3 0.4-5.4 10 ^3/uL Monocytes # (Auto) 0.5 0-1.3 10 ^3/uL Eosinophils # (Auto) 0.1 0-0.8 10 ^3/uL Basophils # (Auto) 0.1 0-0.2 10 ^3/uL Nucleated Red Blood Cells 0.0 % Sodium Level 138 136-145 mmol/L Potassium Level 4.5 3.5-5.1 mmol/L Chloride Level 102 98-107 mmol/L Carbon Dioxide Level 27 20-31 mmol/L Anion Gap 9 5-15 Blood Urea Nitrogen 17 9-23 mg/dL Creatinine 0.79 0.550-1.02 mg/dL Glomerular Filtration Rate Calc 85 >90 mL/min BUN/Creatinine Ratio 21.5 H 10.0-20.0 Serum Glucose 105 74-106 mg/dL Calcium Level 10.4 8.7-10.4 mg/dL CT ABDOMEN AND PELVIS WITHOUT CONTRAST FINDINGS: Evaluation of the abdomen and pelvis is limited without intravenous contrast. The liver, gallbladder, pancreas, kidneys, adrenal glands, and spleen appear w ithin normal limits. There is no gross evidence of abdominal lymphadenopathy. There is no free fluid or free air. The stomach grossly appears unremarkable. The small and large bowel loops demonstrate normal caliber. A normal appearing appendix is seen in the right lower quadrant abdomen. There are diverticula in the distal colon without evidence of acute diverticulitis. The abdominal aorta and IVC appear within normal limits. The bladder appears unremarkable for the degree of distention. Pelvic organ appears within normal limits. There is no gross evidence of a pelvic mass. There is no free fluid collection. Lung bases are clear. There is small pericardial effusion. There is no acute osseous abnormality. IMPRESSION: 1. There is no acute process in the abdomen and pelvis. 2. Distal colon diverticulosis without evidence of acute diverticulitis. Assessment/Plan Assessment/Plan Assessment: Acute chest pain, Abdominal pain, Uncontrolled hypertension, Bradycardia, Anxiety, Hypothyroidism, Plan: Admit to Tele, Cardiology consult, CT abdomen, IV Protonix, IV antibiotics, IV hydration, CBC, CMP, TSH, Lipid panel, Home medications reconciled, Plan discussed with: Patient My Orders Orders - JENNY DODD Procedure Category Date Status Time Ct Ab Pel Wo Con-No CT 01/22/25 Resulted Oral Or Iv 09:04 Electrocardigram EKG 01/22/25 Logged 10:45 Admit ADMIT 01/22/25 Transmitted 16:09 Code Status CODE 01/22/25 Transmitted 16:09 2 Gm Sodium Diet DIET 01/22/25 Transmitted Dinner Sodium Chloride Lock PHA 01/22/25 Logged (Saline Lock Ns) 22:00 Hydrocodone-Acet PHA 01/22/25 Logged 5/325mg Tab ([place] 16:15 Ondansetron Hcl PHA 01/22/25 Logged (Zofran) 16:15 Docusate Sodium PHA 01/22/25 Logged Capsule (Colace 16:15 Complete Blood Count LAB 01/23/25 Verified 04:00 Comprehensive LAB 01/23/25 Verified Metabolic Panel 04:00 Condition: Serious MAREN 01/22/25 In Process 16:09 Acetaminophen Tablet PHA 01/22/25 Logged (Tylenol Tablet) 16:15 Nitroglycerin PHA 01/22/25 Logged Sublingual (Ntrostat 16:15 Morphine Sulfate PHA 01/22/25 Logged Injection 16:15 Stat Ekg For Chest [facility] 01/22/25 In Process Pain 16:09 Notify Of Changes [facility] 01/22/25 In Process From Base 16:09 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 [facility] 01/22/25 In Process 24 Hours 16:09 Emergency Dysrhythmia [facility] 01/22/25 In Process Protocol 16:09 Rhythm Strips Once [facility] 01/22/25 In Process Every Shift 16:09 Oxygen By Nasal RT 01/22/25 Transmitted Cannula 16:09 Levothyroxine Tablet [facility] 01/23/25 Logged (Synthroid Tablet) 10:00 Nifedipine Er PHA 01/22/25 Logged (Procardia Xl 18:00 Naproxen Tablet [facility] 01/22/25 Logged (Naprosyn Tablet) 16:15 (Nf) Hydroxyzine Hcl [facility] 01/22/25 Logged 16:15 (Nf) Magnesium Oxide PHA 01/23/25 Logged 10:00 (Nf) Losartan PHA 01/23/25 Logged Potassium & Hydrochlo 10:00 Date of Service: Jan 22, 2025 Billing Provider: JENNY DODD Common Visit Codes: [id number] INP/OBS CARE (MOD) JENNY DODD Jan 22, 2025 16:30
[2025-01-22 16:36] LABS: Basophils # (auto) 0 10 ^3/uL (0-0.2); Basophils % (auto) 0.4 % (0.0-2.0); Eosinophils # (auto) 0.1 10 ^3/uL (0-0.8); Eosinophils % (auto) 1.7 % (0.0-7.0); Hematocrit 37.2 % (36.0-46.0); Hemoglobin 12.1 g/dL (12.2-16.2); Lymphocytes % (auto) 29.9 % (10.0-50.0); Mean Corpuscular Hemoglobin 30.3 pg (28.0-32.0); Mean Corpuscular Hgb Conc. 32.6 g/dL (32.0-36.0); Monocytes # (auto) 0.4 10 ^3/uL (0-1.3); Monocytes % (auto) 6.3 % (0.0-12.0); Neutrophils # (auto) 4.1 10 ^3/uL (1.6-8.6); Neutrophils % (auto) 61.7 % (37.0-80.0); Nucleated Red Blood Cells % 0.1 %; Platelet Count (auto) 271 10^3/uL (140-450); White Blood Cell 6.7 10^3/uL (4.4-10.8)
[2025-01-22 16:53] LABS: Alanine Aminotransferase 12 U/L (7-40); Albumin 4.1 g/dL (3.2-4.8); Alkaline Phosphatase 52 U/L (46-116); Anion Gap 8 (5-15); BUN/Creatinine Ratio 15.3 (10.0-20.0); Bilirubin, Total 0.5 mg/dL (0.2-1.0); Blood Urea Nitrogen 13 mg/dL (9-23); Calcium 9.1 mg/dL (8.7-10.4); Carbon Dioxide 28 mmol/L (20-31); Chloride 105 mmol/L (98-107); Glucose 81 mg/dL (74-106); Potassium 3.9 mmol/L (3.5-5.1); Sodium 141 mmol/L (136-145); Total Protein 6.5 g/dL (5.7-8.2)
[2025-01-22 16:56] LABS: Aspartate Aminotransferase 9 U/L (13-40)
[2025-01-22 16:59] LABS: Triglycerides 115 mg/dL (< 150)
[2025-01-22 17:01] LABS: Cholesterol 161 mg/dL (< 200)
[2025-01-22] MEDS: NIFEdipine ER 30 MG TAB PO SCH (17:09)
[2025-01-22] MEDS: SODIUM CHLORIDE 0.9% 1,000 ML IV ONE (17:10)
[2025-01-22 17:35] LABS: HDL Cholesterol 29 mg/dL (40-59); LDL Cholesterol 118 mg/dL (< 100)
--- NOTE | 2025-01-22 19:35 | ECG ---
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
[2025-01-22 21:00] VITALS: BP 134/45; PULSE 58; RESP 17; TEMP 98
[2025-01-22 21:59] VITALS: BP 132/45; PULSE 58; RESP 17; TEMP 98; O2SAT 96
[2025-01-22] MEDS: SODIUM CHLOR 0.9% PF (SALINE LOCK) 10ML VIAL/SYR IV SCH (22:12)
[2025-01-23] VITALS (8 sets, daily range): BP systolic 96–141; BP diastolic 49–89; PULSE 52–83; RESP 16–19; TEMP 97.6–98.7; O2SAT 79–96
[2025-01-23] MEDS: HYDROcodone-ACET 5/325MG TAB PO PRN (03:45)
[2025-01-23] MEDS: LEVOTHYROXINE SODIUM 25 MCG TAB PO SCH (05:47)
[2025-01-23 07:25] LABS: Basophils # (auto) 0 10 ^3/uL (0-0.2); Basophils % (auto) 0.2 % (0.0-2.0); Eosinophils # (auto) 0.2 10 ^3/uL (0-0.8); Eosinophils % (auto) 2.2 % (0.0-7.0); Hematocrit 35.7 % (36.0-46.0); Hemoglobin 12.5 g/dL (12.2-16.2); Lymphocytes # (auto) 2.2 10 ^3/uL (0.4-5.4); Lymphocytes % (auto) 32.6 % (10.0-50.0); Mean Corpuscular Hemoglobin 32.3 pg (28.0-32.0); Mean Corpuscular Volume 92.3 fL (80.0-100.0); Monocytes # (auto) 0.4 10 ^3/uL (0-1.3); Monocytes % (auto) 6.1 % (0.0-12.0); Neutrophils % (auto) 58.9 % (37.0-80.0); Platelet Count (auto) 284 10^3/uL (140-450); Red Blood Cells 3.87 10^6/uL (4.0-5.20); Red Cell Distribution Width 12.8 % (11.8-14.3); White Blood Cell 6.8 10^3/uL (4.4-10.8)
[2025-01-23 07:39] LABS: Alanine Aminotransferase 11 U/L (7-40); Alkaline Phosphatase 49 U/L (46-116); Anion Gap 5 (5-15); BUN/Creatinine Ratio 18.3 (10.0-20.0); Blood Urea Nitrogen 15 mg/dL (9-23); Calcium 9.2 mg/dL (8.7-10.4); Carbon Dioxide 28 mmol/L (20-31); Chloride 107 mmol/L (98-107); Glucose 86 mg/dL (74-106); Potassium 4.1 mmol/L (3.5-5.1); Sodium 140 mmol/L (136-145); Total Protein 6.5 g/dL (5.7-8.2)
[2025-01-23 07:41] LABS: Bilirubin, Total 0.4 mg/dL (0.2-1.0)
[2025-01-23 07:45] LABS: Aspartate Aminotransferase 10 U/L (13-40)
[2025-01-23] MEDS ORDERED: PATIENTS OWN MEDICATION (Losartan Potassium & Hydrochlo (Losartan Potassium/Hydroc) 1 TAB) PO SCH (10:00)
[2025-01-23] MEDS: MAGNESIUM OXIDE 400 MG TAB PO SCH (10:13)
[2025-01-23] MEDS: cefTRIAXone 1GM/50ML D5W 50 ML IV SCH (10:13)
[2025-01-23] MEDS: LOSARTAN POTASSIUM 50 MG TAB PO SCH (10:14)
[2025-01-23] MEDS: hydroCHLOROthiazide 25 MG TAB PO SCH (10:15)
[2025-01-23] MEDS: PANTOPRAZOLE 40 MG/10 ML VIAL INJ IV SCH (10:16)
--- NOTE | 2025-01-23 11:04 | DVHINCON2 ---
Date Seen: Jan 23, 2025 Referring Physician ANALI Hennessy Reason for Consultation Bradycardia and hypertensive emergency History of Present Illness This is a 59-year-old female who presented to the emergency room with a chief complaint of abdominal pain. The patient complains of mid abdominal pain described as a burning sensation after administration of naproxen which was prescribed on 01/10/2025. States she notified her PCP who recommended to continue taking it for the treatment of arthritis. She also complains of a severe BLANCAS with associated right sided weakness. States she is concerned as some of her siblings have a history of acute CVAs. The presented with a systolic blood pressure up to the 200s mmHg. States she is compliant with her antihypertensive therapy including losartan potassium 100 mg, nifedipine 30 mg, and hydrochlorothiazide 25 mg. Denies active chest pain, SOB, PIERRE, disturbances, dizziness, or syncopal events. The patient underwent multiple 12 lead electrocardiogram x2 revealing a normal sinus rhythm. 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 Serial troponin levels are negative. Significant medical history includes hypertension, thyroid disease, unspecified arthritis, anxiety, depression, and obesity. Past Medical History Past medical history reviewed. No other significant than mentioned above. Past Surgical History Varicose veins Family History: Depression G8 MOTHER, Onset:Unknown G8 FATHER, Onset:Unknown Family History Family history reviewed. Multiple siblings with CVAs. Social History Denies the use of illicit drugs, alcohol, or tobacco use. Allergies: Coded Allergies: No Known Drug Allergy (Verified Allergy, Unknown, 03/23/20) Home Meds Active Scripts Nifedipine (Nifedipine Er) 30 Mg Tab, 1 TAB PO QPM for 30 Days, #30 TAB 1 Refill Prov:BISMARK HANSEN 09/20/24 Acetaminophen (Tylenol Extra Strength) 500 Mg Tab, 1000 MG PO Q6HP PRN, #30 TAB Prov:LIT ALMARAZ MD 03/12/24 Reported Medications Losartan Potassium & Hydrochlo (Losartan Potassium/Hydroc) 1 Tab Tab, 1 TAB PO DAILY, #30 TAB 5 Refills 01/22/25 Magnesium Oxide (MAGNESIUM OXIDE) 400 Mg Tab, 1 TAB PO DAILY, #30 TAB 5 Refills 01/22/25 Naproxen (NAPROSYN TABLET) 500 Mg Tb, 1 TAB PO BIDPRN PRN 01/22/25 Levothyroxine Sodium (Levothyroxine Sodium) 25 Mcg Tab, 1 TAB PO DAILY 09/17/24 Discontinued Reported Medications Hydroxyzine Hcl (Hydroxyzine Hcl) 25 Mg Tab, 1 TAB PO TIDPRN PRN 01/22/25 Losartan Potassium (Losartan Potassium) 50 Mg Tab, 1 TAB PO DAILY 09/17/24 Discontinued Scripts Losartan Potassium (Losartan Potassium) 50 Mg Tab, 50 MG PO DAILY for 30 Days, #30 TAB Prov:BISMARK HANSEN 09/20/24 Dicyclomine Hcl (BENTYL CAPSULE) 10 Mg Cp, 2 CAP PO Q6HPRN, #30 CAP 3 Refills prn abdomnal pain Prov:LIT ALMARAZ MD 03/12/24 Pantoprazole Sodium Sesquihydr (Protonix) 40 Mg Tab, 40 MG PO DAILY, #30 TAB Prov:LIT ALMARAZ MD 03/12/24 Metronidazole (Flagyl) 500 Mg Tab, 1 TAB PO TID for 10 Days, #30 TAB Prov:LIT ALMARAZ MD 03/12/24 Ciprofloxacin Hcl (Cipro) 500 Mg Tab, 1 TAB PO BID for 10 Days, #20 TAB Prov:LIT ALMARAZ MD 03/12/24 Pantoprazole Sodium Sesquihydr (Pantoprazole Sodium) 40 Mg Tab, 40 MG PO DAILY, #30 TAB Prov:DAYDAY OROZCO MD 06/30/23 Losartan Potassium (Losartan Potassium) 25 Mg Tab, 1 TAB PO DAILY, #90 TAB 1 Refill Prov:DAYDAY OROZCO MD 06/30/23 Clindamycin Hcl (Clindamycin Hcl) 300 Mg Cap, 300 MG PO TID for 7 Days, #21 CAP Prov:NUPUR MCGEE MD 11/09/21 Home Meds Home medications reviewed. Current Medications Current Medications Medications (Trade) Dose Ordered Sig/Awais Route PRN Reason Start Time Stop Time Status Last Admin Sodium Chloride (Saline Lock Ns) 10 ml Q8HR IV 01/22/25 22:00 01/23/25 05:48 Acetaminophen/ Hydrocodone Bitart ([place] 5/325MG Tab) 1 tab Q4HP PRN PO MODERATE PAIN (4-6 PAIN SCALE) 01/22/25 16:15 01/23/25 10:15 Ondansetron HCl (Zofran) 4 mg Q4HP PRN IV NAUSEA / VOMITING 01/22/25 16:15 Docusate Sodium (Colace Capsule) 100 mg BIDPRN PRN PO FOR CONSTIPATION 01/22/25 16:15 Acetaminophen (Tylenol Tablet) 650 mg Q6HP PRN PO PAIN SCALE 1-3 OR TEMP>100.4 01/22/25 16:15 Nitroglycerin (Ntrostat Sublingual) 0.4 mg Q5MINP PRN SL FOR CHEST PAIN 01/22/25 16:15 Morphine Sulfate 2 mg Q30M PRN IV FOR CHEST PAIN 01/22/25 16:15 Levothyroxine Sodium (Synthroid Tablet) 25 mcg QAM PO 01/23/25 07:00 01/23/25 05:47 Nifedipine (Procardia Xl (Time-Release)) 30 mg QPM PO 01/22/25 18:00 01/22/25 17:09 Naproxen (Naprosyn Tablet) 500 mg BIDPRN PRN PO PAIN SCALE 1 THRU 6 01/22/25 16:15 01/22/25 16:21 DC Hydroxyzine Pamoate (Vistaril Oral) 25 mg TIDPRN PRN PO ANXIETY 01/22/25 16:30 Magnesium Oxide (Mag-Ox Tablet) 400 mg DAILY PO 01/23/25 10:00 01/23/25 10:13 Patient Own Medication 1 tab DAILY PO 01/23/25 10:00 01/22/25 16:31 DC Pantoprazole Sodium (Protonix) 40 mg DAILY IV 01/23/25 10:00 01/23/25 10:16 Losartan Potassium (Cozaar Tablet) 100 mg DAILY PO 01/23/25 10:00 01/23/25 10:14 Ceftriaxone Sodium 50 ml @ 100 mls/hr DAILY@09 IV 01/23/25 09:00 01/23/25 10:13 Hydrochlorothiazide (hydroCHLOROthiazide TABLET) 25 mg DAILY PO 01/23/25 10:00 01/23/25 10:15 Review of Systems Constitutional: No symptom reported Ears, Nose, & Throat: No symptom reported Eyes: No symptom reported Neurological: BLANCAS, right-sided weakness Pulmonary/Respiratory: No symptom reported Cardiovascular: No symptom reported Gastrointestinal: Abdominal pain Genitourinary: No symptom reported Musculoskeletal: No symptom reported Skin: No symptom reported Psychiatric: No symptom reported Endocrine: No symptom reported Hemotologic/Lymphatic: No symptom reported Vital Signs Vital Signs Date Time Temp Pulse Resp B/P (MAP) Pulse Ox O2 Delivery O2 Flow Rate FiO2 01/23/25 10:15 137/52 01/23/25 09:00 98.0 52 18 94 98.0 01/22/25 21:59 Room Air* 0 21 Physical Exam General Appearance: Cooperative. Well developed. Obese. In no acute distress Head Exam: Normal inspection Neck Exam: Normal inspection. Non-tender. Normal alignment Pulmonary/Respiratory: Chest non-tender. Clear bilateral breath sounds Cardiovascular/Chest: Regular rate and rhythm. S1, S2. NSR. No murmurs. No JVD. Peripheral Pulses: 2+ Radial (R). 2+ Radial (L). 2+ Pedal (R). 2+ Pedal (L) Abdominal Exam: Normal bowel sounds. Soft. Ankle Exam: Negative ankle edema Lower extremities: Negative lower extremity edema Neuro/Mental Status: A&O x4. Coherent. Negative facial droop, negative d ysarthria Thoughts/Psych: Normal thought pattern. Appropriate mood and affect. Good judgement and insight Appearance: In no acute distress Skin Exam: Normal inspection. Normal color. Warm. Dry Labs/Diagnostic Data Labs Test 01/23/25 06:25 01/22/25 10:50 01/21/25 12:30 Range/Units White Blood Count 6.8 4.4-10.8 10^3/uL Red Blood Count 3.87 L 4.0-5.20 10^6/uL Hemoglobin 12.5 12.2-16.2 g/dL Hematocrit 35.7 L 36.0-46.0 % Mean Corpuscular Volume 92.3 80.0-100.0 fL Mean Corpuscular Hemoglobin 32.3 H 28.0-32.0 pg Mean Corpuscular Hemoglobin Concent 35.0 32.0-36.0 g/dL Red Cell Distribution Width 12.8 11.8-14.3 % Platelet Count 284 140-450 10^3/uL Mean Platelet Volume 9.6 6.9-10.8 fL Neutrophils (%) (Auto) 58.9 37.0-80.0 % Lymphocytes (%) (Auto) 32.6 10.0-50.0 % Monocytes (%) (Auto) 6.1 0.0-12.0 % Eosinophils (%) (Auto) 2.2 0.0-7.0 % Basophils (%) (Auto) 0.2 0.0-2.0 % Neutrophils # (Auto) 4.0 1.6-8.6 10 ^3/uL Lymphocytes # (Auto) 2.2 0.4-5.4 10 ^3/uL Monocytes # (Auto) 0.4 0-1.3 10 ^3/uL Eosinophils # (Auto) 0.2 0-0.8 10 ^3/uL Basophils # (Auto) 0 0-0.2 10 ^3/uL Nucleated Red Blood Cells 0.0 % Sodium Level 140 136-145 mmol/L Potassium Level 4.1 3.5-5.1 mmol/L Chloride Level 107 98-107 mmol/L Carbon Dioxide Level 28 20-31 mmol/L Anion Gap 5 5-15 Blood Urea Nitrogen 15 9-23 mg/dL Creatinine 0.82 0.550-1.02 mg/dL Glomerular Filtration Rate Calc 81 >90 mL/min BUN/Creatinine Ratio 18.3 10.0-20.0 Serum Glucose 86 74-106 mg/dL Calcium Level 9.2 8.7-10.4 mg/dL Total Bilirubin 0.4 0.2-1.0 mg/dL Aspartate Amino Transferase (AST) 10 L 13-40 U/L Alanine Aminotransferase (ALT) 11 7-40 U/L Alkaline Phosphatase 49 46-116 U/L Total Protein 6.5 5.7-8.2 g/dL Albumin 4.0 3.2-4.8 g/dL Troponin I High Sensitivity 3 L </=34 ng/L Triglycerides Level 115 < 150 mg/dL Cholesterol Level 161 < 200 mg/dL LDL Cholesterol 118 H < 100 mg/dL HDL Cholesterol 29 L 40-59 mg/dL Thyroid Stimulating Hormone (TSH) 1.95 0.55-4.78 uIU/mL Urine Color Light-yellow Yellow Urine Clarity Clear Clear Urine pH 7.0 5.0-9.0 Urine Specific [place] 1.012 1.001-1.035 Urine Protein Negative Negative Urine Ketones Negative Negative Urine Blood Negative Negative /uL Urine Nitrite Negative Negative Urine Bilirubin Negative Negative Urine Urobilinogen Normal Negative mg/dL Urine Leukocyte Esterase 1+ Negative /uL Urine RBC 2 0 - 4 /hpf Urine Microscopic WBC 2 0-5 /HPF Urine Squamous Epithelial Cells Few <5 /hpf Urine Bacteria None seen None Seen /hpf Urine Glucose Normal Normal mg/dL Assessment Asymptomatic bradycardia Hypertensive urgency Rule out acute CVA/TIA Unspecified arthritis Thyroid disease Anemia Obesity Plan/Recommendation (Dr. Garcia) Recent transthoracic echocardiogram revealing an LVEF of 55% with grade 1 diastolic dysfunction (09/19/2024). The patient presents with asymptomatic bradycardia. Continue aggressive blood pressure control for a target SBP <140 mmHg, uptitrate as necessary. Avoid AV adonay blocking agents. She can benefit from an outpatient event monitor if deemed necessary. It would be prudent to discontinue NSAIDs given episodes of gastritis. Scheduled for a head CT to rule out acute neurological processes. Consider neurology consultation. There is no further cardiac workup indicated at this time. Kindly call if in need to re- consult. Thank you for allowing us to participate in this patient's care. This medical document was created using an electronic medical record system with voice recognition software and computerized dictation system. Although this document has been carefully reviewed, there might still be some phonetic and typographical errors. Occasional wrong-word or ``sound-alike substitutions may have occurred due to the inherent limitations of voice recognition software. These areas are purely typographical due to imperfections of the software programs and do not reflect any compromise in the patient's medical care. Please read the chart carefully and recognize, using context, where these substitutions have occurred. Plan discussed with: Patient, Other NYHA Physical activity limitations: NA Date of Service: Jan 23, 2025 Billing Provider: AVINASH PARK Cardiology Common Codes: [id number] INP/OBS CARE (High) AVINASH PARK Jan 23, 2025 11:04
--- NOTE | 2025-01-23 12:17 | DVHPN2 ---
Reviewed: Care Plan, H&P, Labs, Medications, Previous Orders, Radiology Changes from previous H/P or p: No Changes Eyes: No Pain, No Vision change, No Conjunctivae inflammation, No Eyelid inflammation, No Other, No Redness ENT: No Ear pain, No Ear discharge, No Nose pain, No Nose discharge, No Nose congestion, No Mouth pain, No Mouth swelling, No Throat pain, No Throat swelling, No Other Cardiovascular: No Chest Pain, No Palpitations, No Orthopnea, No Paroxysmal Noc. Dyspnea, No Edema, No Lt Headedness, No Other Respiratory: No Cough, No Dry, No Shortness of breath, No SOB with excertion, No Wheezing, No Hemoptysis, No Pleuritic Pain, No Sputum, No Other Gastrointestinal: Nausea; No Vomiting; Abdominal Pain; No Diarrhea, No Constipation, No Melena, No Hematochezia, No Other Genitourinary: No Dysuria, No Frequency, No Incontinence, No Hematuria, No Retention, No Other Musculoskeletal: No other, No neck pain, No shoulder pain, No arm pain, No back pain, No hand pain, No leg pain, No foot pain Skin: No Rash, No Lesions, No Jaundice, No Bruising, No Other Objective Vitals Vital Signs Date Time Temp Pulse Resp B/P (MAP) Pulse Ox O2 Delivery O2 Flow Rate FiO2 01/23/25 10:15 137/52 01/23/25 09:00 98.0 52 18 94 98.0 01/22/25 21:59 Room Air* 0 21 Intake/Output Intake and Output 01/23/25 07:00 Intake Total 100 ml Output Total 0 ml Balance 100 ml Intake Oral 0 ml IV Total 100 ml Output Stool Total 0 ml # Voids 2 Medications Current Medications Medications Dose Ordered Sig/Awais Route Start Time Stop Time Status Last Admin Dose Admin Sodium Chloride 10 ml Q8HR IV 01/22/25 22:00 01/23/25 05:48 10 ML Acetaminophen/ Hydrocodone Bitart 1 tab Q4HP PRN PO 01/22/25 16:15 01/23/25 10:15 1 TAB Ondansetron HCl 4 mg Q4HP PRN IV 01/22/25 16:15 Docusate Sodium 100 mg BIDPRN PRN PO 01/22/25 16:15 Acetaminophen 650 mg Q6HP PRN PO 01/22/25 16:15 Nitroglycerin 0.4 mg Q5MINP PRN SL 01/22/25 16:15 Morphine Sulfate 2 mg Q30M PRN IV 01/22/25 16:15 Levothyroxine Sodium 25 mcg QAM PO 01/23/25 07:00 01/23/25 05:47 25 MCG Nifedipine 30 mg QPM PO 01/22/25 18:00 01/22/25 17:09 30 MG Hydroxyzine Pamoate 25 mg TIDPRN PRN PO 01/22/25 16:30 Magnesium Oxide 400 mg DAILY PO 01/23/25 10:00 01/23/25 10:13 400 MG Pantoprazole Sodium 40 mg DAILY IV 01/23/25 10:00 01/23/25 10:16 40 MG Losartan Potassium 100 mg DAILY PO 01/23/25 10:00 01/23/25 10:14 100 MG Ceftriaxone Sodium 50 ml @ 100 mls/hr DAILY@09 IV 01/23/25 09:00 01/23/25 10:13 100 MLS/HR Hydrochlorothiazide 25 mg DAILY PO 01/23/25 10:00 01/23/25 10:15 25 MG Laboratory Results Laboratory Tests 01/23/25 06:25 Chemistry Test 01/23/25 06:25 Albumin 4.0 g/dL (3.2-4.8) Calcium Level 9.2 mg/dL (8.7-10.4) Total Protein 6.5 g/dL (5.7-8.2) LFT Test 01/23/25 06:25 Alanine Aminotransferase (ALT) 11 U/L (7-40) Alkaline Phosphatase 49 U/L (46-116) Aspartate Amino Transferase (AST) 10 U/L (13-40) L Total Bilirubin 0.4 mg/dL (0.2-1.0) Urinalysis Test 01/21/25 12:30 Urine Color Light-yellow (Yellow) Urine Clarity Clear (Clear) Urine pH 7.0 (5.0-9.0) Urine Specific [place] 1.012 (1.001-1.035) Urine Protein Negative (Negative) Urine Ketones Negative (Negative) Urine Blood Negative /uL (Negative) Urine Nitrite Negative (Negative) Urine Bilirubin Negative (Negative) Urine Urobilinogen Normal mg/dL (Negative) Urine Leukocyte Esterase 1+ /uL (Negative) Urine RBC 2 /hpf (0 - 4) Urine Microscopic WBC 2 /HPF (0-5) Urine Squamous Epithelial Cells Few /hpf (<5) Urine Bacteria None seen /hpf (None Seen) Urine Glucose Normal mg/dL (Normal) Labs and/or images reviewed: Labs reviewed by me, Image(s) reviewed by me Assessment/Plan Assessment/Plan Asymptomatic bradycardia Hypertensive urgency: Ejection fraction 55 percent 09/19/2024, cardiology consult appreciated, continue losartan nifedipine and hydrochlorothiazide, no further cardiac workup Rule out acute CVA/TIA CT head ordered, neurology consult Dr. Joiner Unspecified arthritis Thyroid disease Diverticulosis NSAID induced gastritis, DC NSAIDS pantoprazole Anemia Obesity Plan discussed with: Patient Date of Service: Jan 23, 2025 Billing Provider: DAYDAY OROZCO MD Common Visit Codes: [id number] INP/OBS CARE(HIGH) DAYDAY OROZCO MD Jan 23, 2025 12:17
--- NOTE | 2025-01-23 13:33 | DVH ---
EXAM: CT HEAD WITHOUT CONTRAST HISTORY: Headache with right-sided weakness ruled out CVA COMPARISON: CT HEAD WITHOUT CONTRAST on DOS: 09/17/24 TECHNIQUE: Axial images of the head were obtained and reformatted in coronal and sagittal planes. All CT scans at this medical facility are performed using dose modulation techniques as appropriate t o a performed exam including the following: Automated exposure control was utilized; adjustment of th e MA and/or KV according to patient size; and use of iterative reconstruction technique. CT Dose: CTDI volume is 55.66 mGy. Dose-length product is 892.19 mGy*cm FINDINGS: There is no evidence of acute intracranial hemorrhage, mass, mass effect midline shift. There is no h ydrocephalus or extra-axial fluid collection. Alexander-white matter differentiation is maintained. The visualized paranasal sinuses and mastoid air cells are clear. The calvarium is intact. IMPRESSION: 1. No acute intracranial process. HS:Y
--- NOTE | 2025-01-23 14:45 | ECG ---
[facility] Test Date: 2025-01-21 Test Time: 10:40:17 Pat Name: CT NARAYAN [facility] F Escalator Operator: PATRICIA : [id number] Requested By: NUPUR MCGEE Order Number: [id number] Reading MD: Rigo Webb Measurements Intervals [place] Rate: 60 P: 12 MN: 156 QRS: -23 QRSD: 91 T: 54 QT: 437 QTc: 437 Interpretive Statements Sinus rhythm Borderline left axis deviation Electronically Signed On 01-24-2025 11:55:33 PDT by Rigo Webb Please click the below link to view image of tracing.
--- NOTE | 2025-01-23 22:28 | DVHINCON2 ---
Date of service: Jan 23, [address] Orozco Reason for Consultation Headache with right-sided weakness, rule out stroke History of Present Illness Ms. Perez is a 59 years old right-handed female with a history of hypertension, hypothyroidism, anxiety, obesity, the patient came to the [facility] on 01/21/2025 with a chief complaint of abdominal pain, but she also has other complaints. At this time, she was alert, fully oriented, she provided the following history without bilingual staff help For one year, the patient has progressive constant bad mixed pressure and throbbing pain in the whole head, bilateral neck. The patient was worse when she she is supine in the bed, worse when she is up. On 01/22/2025, she had on brief event where her eyes were crossed, but without associated double vision or blurred vision, she reports that she has had no blurred vision or double vision since the headache started She has nausea, vomiting on 01/23/2025, which is only nausea and vomiting she has had since her headache For about one years, she has been on Tylenol, naproxen and other pain medication every single day for the headache Over the last year, the patient lost two of her sons secondary to fentanyl overdose, she became tearful when she talked about it Urinalysis, 01/21/2025: WBC: 2, urine leukocyte esterase: 1+ CBC, 01/21/2025: Unremarkable CBC, 01/23/2025: Unremarkable TG/HDL/LDL/HDL, 01/22/2025: 115/161/118/29 TSH, 01/22/2025: 1.95 CT head, 01/23/2025: No acute intracranial process MRI head, 02/27/2021: 1. Mild diffuse cerebral volume loss. Mild small vessel ischemic changes. 2. No abnormal mass or acute bleed. 3. Small DWI hyperintense focus in the right posterior frontal lobe, without definite decreased ADC signal. This could reflect T2 shine through artifact, or a punctate subacute infarct. Past Medical History Hypertension, hypothyroidism, anxiety Past Surgical History None Family History: Depression G8 MOTHER, Onset:Unknown G8 FATHER, Onset:Unknown Family History Stroke, depression Social History She has no history of smoking, alcohol or drug abuse Allergies: Coded Allergies: No Known Drug Allergy (Verified Allergy, Unknown, 03/23/20) Home Meds Active Scripts Nifedipine (Nifedipine Er) 30 Mg Tab, 1 TAB PO QPM for 30 Days, #30 TAB 1 Refill Prov:BISMARK HANSEN RESIDENT 09/20/24 Acetaminophen (Tylenol Extra Strength) 500 Mg Tab, 1000 MG PO Q6HP PRN, #30 TAB Prov:ILT ALMARAZ MD 03/12/24 Reported Medications Losartan Potassium & Hydrochlo (Losartan Potassium/Hydroc) 1 Tab Tab, 1 TAB PO DAILY, #30 TAB 5 Refills 01/22/25 Magnesium Oxide (MAGNESIUM OXIDE) 400 Mg Tab, 1 TAB PO DAILY, #30 TAB 5 Refills 01/22/25 Naproxen (NAPROSYN TABLET) 500 Mg Tb, 1 TAB PO BIDPRN PRN 01/22/25 Levothyroxine Sodium (Levothyroxine Sodium) 25 Mcg Tab, 1 TAB PO DAILY 09/17/24 Discontinued Reported Medications Hydroxyzine Hcl (Hydroxyzine Hcl) 25 Mg Tab, 1 TAB PO TIDPRN PRN 01/22/25 Losartan Potassium (Losartan Potassium) 50 Mg Tab, 1 TAB PO DAILY 09/17/24 Discontinued Scripts Losartan Potassium (Losartan Potassium) 50 Mg Tab, 50 MG PO DAILY for 30 Days, #30 TAB Prov:BISMARK HANSEN RESIDENT 09/20/24 Dicyclomine Hcl (BENTYL CAPSULE) 10 Mg Cp, 2 CAP PO Q6HPRN, #30 CAP 3 Refills prn abdomnal pain Prov:LIT ALMARAZ MD 03/12/24 Pantoprazole Sodium Sesquihydr (Protonix) 40 Mg Tab, 40 MG PO DAILY, #30 TAB Prov:LIT ALMARAZ MD 03/12/24 Metronidazole (Flagyl) 500 Mg Tab, 1 TAB PO TID for 10 Days, #30 TAB Prov:LIT ALMARAZ MD 03/12/24 Ciprofloxacin Hcl (Cipro) 500 Mg Tab, 1 TAB PO BID for 10 Days, #20 TAB Prov:LIT ALMARAZ MD 03/12/24 Pantoprazole Sodium Sesquihydr (Pantoprazole Sodium) 40 Mg Tab, 40 MG PO DAILY, #30 TAB Prov:DAYDAY OROZCO MD 06/30/23 Losartan Potassium (Losartan Potassium) 25 Mg Tab, 1 TAB PO DAILY, #90 TAB 1 Refill Prov:DAYDAY OROZCO MD 06/30/23 Clindamycin Hcl (Clindamycin Hcl) 300 Mg Cap, 300 MG PO TID for 7 Days, #21 CAP Prov:NUPUR MCGEE MD 11/09/21 Current Medications Current Medications Medications (Trade) Dose Ordered Sig/Awais Route PRN Reason Start Time Stop Time Status Last Admin Levothyroxine Sodium (Synthroid Tablet) 25 mcg QAM PO 01/23/25 07:00 01/23/25 05:47 Magnesium Oxide (Mag-Ox Tablet) 400 mg DAILY PO 01/23/25 10:00 01/23/25 10:13 Patient Own Medication 1 tab DAILY PO 01/23/25 10:00 01/22/25 16:31 DC Pantoprazole Sodium (Protonix) 40 mg DAILY IV 01/23/25 10:00 01/23/25 10:16 Losartan Potassium (Cozaar Tablet) 100 mg DAILY PO 01/23/25 10:00 01/23/25 10:14 Ceftriaxone Sodium 50 ml @ 100 mls/hr DAILY@09 IV 01/23/25 09:00 01/23/25 10:13 Hydrochlorothiazide (hydroCHLOROthiazide TABLET) 25 mg DAILY PO 01/23/25 10:00 01/23/25 10:15 Review of Systems As above, the other systems are negative Vital Signs Vital Signs Date Time Temp Pulse Resp B/P (MAP) Pulse Ox O2 Delivery O2 Flow Rate FiO2 01/23/25 21:00 98.1 58 18 105/54 (71) 95 98.1 01/23/25 20:00 Room Air* 0 21 Physical Exam GENERAL EXAM: General: the patient is well developed and nourished. No acute distress. HEENT: Normocephalic, neck is supple, no carotid bruits. No mass. Diffuse tenderness to palpation in-house scalp, frontal region, whole neck. No focal erythema, swelling, permanent vasculature RESPIRATORY: Normal respiratory effort with symmetrical lung expansion. Lungs clear to auscultation. CARDIOVASCULAR: Regular rate and rhythm with no murmurs. S1, S2. ABDOMEN: Soft, nontender, normal bowel sound NEUROLOGICAL: MENTAL STATUS: Awake and alert. Oriented to person, place, time and general circumstances. Poor historian SPEECH, LANGUAGE, HIGHER CORTICAL FUNCTION: no aphasia or dysathria. CRANIAL NERVES: #2: Intact visual [place] to confrontation. The optic discs were sharp. . #3,4,6: Pupils are equal, round and reactive. EOMs full and conjugate. No nystagmus. #5: Facial sensation intact in all three divisions bilaterally. Mandibular strength intact. #7: Facial muscles symmetrical and strength intact. #8: Hearing grossly normal to voice. #9,10: Uvula and soft palate rise in the midline. Swallow and voice are normal. #11: Trapezius and sternomastoid strength intact bilaterally. #12: Tongue midline. No fasciculations or atrophy. SENSATION: Sensation to touch and pinprick is normal. MOTOR: Normal tone in the upper and lower extremity. Normal muscle bulk. No fasciculations. No abnormal movements or posturing. Muscle strength of the major groups in the upper extremities is 5/5. Muscle strength of the major groups in the lower extremities is 5/5. REFLEXES: Deep tendon reflexes are symmetrical. No pathological reflexes. CEREBELLAR/COORDINATION: Finger to nose is normal bilaterally. GAIT/STATION: deferred. Labs/Diagnostic Data Labs Test 01/23/25 06:25 01/22/25 10:50 01/21/25 12:30 Range/Units White Blood Count 6.8 4.4-10.8 10^3/uL Red Blood Count 3.87 L 4.0-5.20 10^6/uL Hemoglobin 12.5 12.2-16.2 g/dL Hematocrit 35.7 L 36.0-46.0 % Mean Corpuscular Volume 92.3 80.0-100.0 fL Mean Corpuscular Hemoglobin 32.3 H 28.0-32.0 pg Mean Corpuscular Hemoglobin Concent 35.0 32.0-36.0 g/dL Red Cell Distribution Width 12.8 11.8-14.3 % Platelet Count 284 140-450 10^3/uL Mean Platelet Volume 9.6 6.9-10.8 fL Neutrophils (%) (Auto) 58.9 37.0-80.0 % Lymphocytes (%) (Auto) 32.6 10.0-50.0 % Monocytes (%) (Auto) 6.1 0.0-12.0 % Eosinophils (%) (Auto) 2.2 0.0-7.0 % Basophils (%) (Auto) 0.2 0.0-2.0 % Neutrophils # (Auto) 4.0 1.6-8.6 10 ^3/uL Lymphocytes # (Auto) 2.2 0.4-5.4 10 ^3/uL Monocytes # (Auto) 0.4 0-1.3 10 ^3/uL Eosinophils # (Auto) 0.2 0-0.8 10 ^3/uL Basophils # (Auto) 0 0-0.2 10 ^3/uL Nucleated Red Blood Cells 0.0 % Sodium Level 140 136-145 mmol/L Potassium Level 4.1 3.5-5.1 mmol/L Chloride Level 107 98-107 mmol/L Carbon Dioxide Level 28 20-31 mmol/L Anion Gap 5 5-15 Blood Urea Nitrogen 15 9-23 mg/dL Creatinine 0.82 0.550-1.02 mg/dL Glomerular Filtration Rate Calc 81 >90 mL/min BUN/Creatinine Ratio 18.3 10.0-20.0 Serum Glucose 86 74-106 mg/dL Calcium Level 9.2 8.7-10.4 mg/dL Total Bilirubin 0.4 0.2-1.0 mg/dL Aspartate Amino Transferase (AST) 10 L 13-40 U/L Alanine Aminotransferase (ALT) 11 7-40 U/L Alkaline Phosphatase 49 46-116 U/L Total Protein 6.5 5.7-8.2 g/dL Albumin 4.0 3.2-4.8 g/dL Troponin I High Sensitivity 3 L </=34 ng/L Triglycerides Level 115 < 150 mg/dL Cholesterol Level 161 < 200 mg/dL LDL Cholesterol 118 H < 100 mg/dL HDL Cholesterol 29 L 40-59 mg/dL Thyroid Stimulating Hormone (TSH) 1.95 0.55-4.78 uIU/mL Urine Color Light-yellow Yellow Urine Clarity Clear Clear Urine pH 7.0 5.0-9.0 Urine Specific [place] 1.012 1.001-1.035 Urine Protein Negative Negative Urine Ketones Negative Negative Urine Blood Negative Negative /uL Urine Nitrite Negative Negative Urine Bilirubin Negative Negative Urine Urobilinogen Normal Negative mg/dL Urine Leukocyte Esterase 1+ Negative /uL Urine RBC 2 0 - 4 /hpf Urine Microscopic WBC 2 0-5 /HPF Urine Squamous Epithelial Cells Few <5 /hpf Urine Bacteria None seen None Seen /hpf Urine Glucose Normal Normal mg/dL Assessment Chronic headache, Medication overuse headache Rule out temporal arteritis, less likely Anxiety Depression Plan/Recommendation Monitoring Supportive treatment Telemetry She has been advised to avoid taking pain medication for headache on a regular basis A trial of brief dexamethasone 10 mg IV daily, Reglan 15 mg daily t.i.d., hydration for the headache Follow up with me on discharge Follow up with her doctor ROB on discharge More recommendation per clinical course Prognosis: Poor This medical document was created using an electronic medical record system with [employer] dictation system. Although this document has been carefully reviewed, there may still be some phonetic and typographical errors. These areas are purely typographical due to imperfections of the software programs, and do not reflect any compromise in the patient's medical care. Plan discussed with: Patient, Other TERENCE WERNER MD Jan 23, 2025 22:28
[2025-01-23] MEDS: SODIUM CHLORIDE 0.9% 1,000 ML IV SCH (23:57)
[2025-01-24 01:00] VITALS: BP 111/50; PULSE 56; RESP 18; TEMP 97.7; O2SAT 95
[2025-01-24 05:00] VITALS: BP 146/61; PULSE 60; RESP 18; TEMP 97.9; O2SAT 97
[2025-01-24] MEDS: METOCLOPRAMIDE HCL 10 MG TAB PO SCH (06:00)
[2025-01-24 08:00] VITALS: PULSE 48
[2025-01-24 09:00] VITALS: BP 130/59; PULSE 57; RESP 20; TEMP 98.9; O2SAT 94
[2025-01-24] MEDS: DexAMETHasone INJECTION 10 MG in D5W 5% 50 ML IV SCH (09:30)
--- NOTE | 2025-01-24 10:01 | DVHPN2 ---
Reviewed: Care Plan, H&P, Labs, Medications, Previous Orders, Radiology Changes from previous H/P or p: No Changes Eyes: No Pain, No Vision change, No Conjunctivae inflammation, No Eyelid inflammation, No Other, No Redness ENT: No Ear pain, No Ear discharge, No Nose pain, No Nose discharge, No Nose congestion, No Mouth pain, No Mouth swelling, No Throat pain, No Throat swelling, No Other Cardiovascular: No Chest Pain, No Palpitations, No Orthopnea, No Paroxysmal Noc. Dyspnea, No Edema, No Lt Headedness, No Other Respiratory: No Cough, No Dry, No Shortness of breath, No SOB with excertion, No Wheezing, No Hemoptysis, No Pleuritic Pain, No Sputum, No Other Gastrointestinal: Nausea; No Vomiting; Abdominal Pain; No Diarrhea, No Constipation, No Melena, No Hematochezia, No Other Genitourinary: No Dysuria, No Frequency, No Incontinence, No Hematuria, No Retention, No Other Musculoskeletal: No other, No neck pain, No shoulder pain, No arm pain, No back pain, No hand pain, No leg pain, No foot pain Skin: No Rash, No Lesions, No Jaundice, No Bruising, No Other Objective Vitals Vital Signs Date Time Temp Pulse Resp B/P (MAP) Pulse Ox O2 Delivery O2 Flow Rate FiO2 01/24/25 09:29 130/59 01/24/25 09:00 98.9 57 20 94 98.9 01/23/25 20:00 Room Air* 0 21 Intake/Output Intake and Output 01/24/25 07:00 Intake Total 1250 ml Balance 1250 ml Intake Oral 1200 ml IV Total 50 ml # Voids 9 Medications Current Medications Medications Dose Ordered Sig/Awais Route Start Time Stop Time Status Last Admin Dose Admin Sodium Chloride 10 ml Q8HR IV 01/22/25 22:00 01/24/25 06:44 10 ML Acetaminophen/ Hydrocodone Bitart 1 tab Q4HP PRN PO 01/22/25 16:15 01/23/25 10:15 1 TAB Ondansetron HCl 4 mg Q4HP PRN IV 01/22/25 16:15 Docusate Sodium 100 mg BIDPRN PRN PO 01/22/25 16:15 Acetaminophen 650 mg Q6HP PRN PO 01/22/25 16:15 Nitroglycerin 0.4 mg Q5MINP PRN SL 01/22/25 16:15 Morphine Sulfate 2 mg Q30M PRN IV 01/22/25 16:15 Levothyroxine Sodium 25 mcg QAM PO 01/23/25 07:00 01/24/25 06:44 25 MCG Nifedipine 30 mg QPM PO 01/22/25 18:00 01/23/25 17:53 30 MG Hydroxyzine Pamoate 25 mg TIDPRN PRN PO 01/22/25 16:30 Magnesium Oxide 400 mg DAILY PO 01/23/25 10:00 01/24/25 09:24 400 MG Pantoprazole Sodium 40 mg DAILY IV 01/23/25 10:00 01/24/25 09:23 40 MG Losartan Potassium 100 mg DAILY PO 01/23/25 10:00 01/24/25 09:29 100 MG Ceftriaxone Sodium 50 ml @ 100 mls/hr DAILY@09 IV 01/23/25 09:00 01/24/25 09:23 100 MLS/HR Hydrochlorothiazide 25 mg DAILY PO 01/23/25 10:00 01/24/25 09:24 25 MG Dexamethasone Sodium Phosphate 10 mg/Dextrose 51 ml @ 204 mls/hr DAILY IV 01/24/25 10:00 01/24/25 09:30 204 MLS/HR Metoclopramide HCl 15 mg Q8HR PO 01/24/25 06:00 01/24/25 06:00 15 MG Sodium Chloride 1,000 ml @ 100 mls/hr Q10H IV 01/23/25 23:15 01/24/25 09:23 100 MLS/HR Laboratory Results Laboratory Tests 01/23/25 06:25 Urinalysis Test 01/21/25 12:30 Urine Color Light-yellow (Yellow) Urine Clarity Clear (Clear) Urine pH 7.0 (5.0-9.0) Urine Specific [place] 1.012 (1.001-1.035) Urine Protein Negative (Negative) Urine Ketones Negative (Negative) Urine Blood Negative /uL (Negative) Urine Nitrite Negative (Negative) Urine Bilirubin Negative (Negative) Urine Urobilinogen Normal mg/dL (Negative) Urine Leukocyte Esterase 1+ /uL (Negative) Urine RBC 2 /hpf (0 - 4) Urine Microscopic WBC 2 /HPF (0-5) Urine Squamous Epithelial Cells Few /hpf (<5) Urine Bacteria None seen /hpf (None Seen) Urine Glucose Normal mg/dL (Normal) Labs and/or images reviewed: Labs reviewed by me, Image(s) reviewed by me Assessment/Plan Assessment/Plan Asymptomatic bradycardia Hypertensive urgency: Ejection fraction 55 percent 09/19/2024, cardiology consult appreciated, continue losartan nifedipine and hydrochlorothiazide, no further cardiac workup Rule out acute CVA/TIA CT head negative neurology consult Dr. Joiner appreciated, the headache possibly due to medication overuse anxiety and depression Unspecified arthritis Thyroid disease Diverticulosis NSAID induced gastritis, DC NSAIDS pantoprazole Anemia Obesity Plan discussed with: Patient My Orders Orders - DAYDAY OROZCO MD Procedure Category Date Status Time Head Without Contrast CT 01/23/25 Resulted 12:07 * Neurology Consult CONS 01/23/25 Transmitted 12:17 Date of Service: Jan 24, 2025 Billing Provider: DAYDAY OROZCO MD Common Visit Codes: [id number] INP/OBS CARE(HIGH) DAYDAY OROZCO MD Jan 24, 2025 10:01
--- NOTE | 2025-01-24 10:05 | DVHDS2 ---
Discharge Summary Date of Admission Jan 22, 2025 at 16:09 Date of Discharge: Jan 24, 2025 Admitting Diagnosis Headache Wounds: None Labs/Diagnostic Data: Laboratory Results Test 01/23/25 06:25 01/22/25 10:50 01/21/25 12:30 White Blood Count 6.8 10^3/uL (4.4-10.8) Red Blood Count 3.87 10^6/uL (4.0-5.20) Hemoglobin 12.5 g/dL (12.2-16.2) Hematocrit 35.7 % (36.0-46.0) Mean Corpuscular Volume 92.3 fL (80.0-100.0) Mean Corpuscular Hemoglobin 32.3 pg (28.0-32.0) Mean Corpuscular Hemoglobin Concent 35.0 g/dL (32.0-36.0) Red Cell Distribution Width 12.8 % (11.8-14.3) Platelet Count 284 10^3/uL (140-450) Mean Platelet Volume 9.6 fL (6.9-10.8) Neutrophils (%) (Auto) 58.9 % (37.0-80.0) Lymphocytes (%) (Auto) 32.6 % (10.0-50.0) Monocytes (%) (Auto) 6.1 % (0.0-12.0) Eosinophils (%) (Auto) 2.2 % (0.0-7.0) Basophils (%) (Auto) 0.2 % (0.0-2.0) Neutrophils # (Auto) 4.0 10 ^3/uL (1.6-8.6) Lymphocytes # (Auto) 2.2 10 ^3/uL (0.4-5.4) Monocytes # (Auto) 0.4 10 ^3/uL (0-1.3) Eosinophils # (Auto) 0.2 10 ^3/uL (0-0.8) Basophils # (Auto) 0 10 ^3/uL (0-0.2) Nucleated Red Blood Cells 0.0 % Sodium Level 140 mmol/L (136-145) Potassium Level 4.1 mmol/L (3.5-5.1) Chloride Level 107 mmol/L (98-107) Carbon Dioxide Level 28 mmol/L (20-31) Anion Gap 5 (5-15) Blood Urea Nitrogen 15 mg/dL (9-23) Creatinine 0.82 mg/dL (0.550-1.02) Glomerular Filtration Rate Calc 81 mL/min (>90) BUN/Creatinine Ratio 18.3 (10.0-20.0) Serum Glucose 86 mg/dL (74-106) Calcium Level 9.2 mg/dL (8.7-10.4) Total Bilirubin 0.4 mg/dL (0.2-1.0) Aspartate Amino Transferase (AST) 10 U/L (13-40) Alanine Aminotransferase (ALT) 11 U/L (7-40) Alkaline Phosphatase 49 U/L (46-116) Total Protein 6.5 g/dL (5.7-8.2) Albumin 4.0 g/dL (3.2-4.8) Troponin I High Sensitivity 3 ng/L (</=34) Triglycerides Level 115 mg/dL (< 150) Cholesterol Level 161 mg/dL (< 200) LDL Cholesterol 118 mg/dL (< 100) HDL Cholesterol 29 mg/dL (40-59) Thyroid Stimulating Hormone (TSH) 1.95 uIU/mL (0.55-4.78) Urine Color Light-yellow (Yellow) Urine Clarity Clear (Clear) Urine pH 7.0 (5.0-9.0) Urine Specific [place] 1.012 (1.001-1.035) Urine Protein Negative (Negative) Urine Ketones Negative (Negative) Urine Blood Negative /uL (Negative) Urine Nitrite Negative (Negative) Urine Bilirubin Negative (Negative) Urine Urobilinogen Normal mg/dL (Negative) Urine Leukocyte Esterase 1+ /uL (Negative) Urine RBC 2 /hpf (0 - 4) Urine Microscopic WBC 2 /HPF (0-5) Urine Squamous Epithelial Cells Few /hpf (<5) Urine Bacteria None seen /hpf (None Seen) Urine Glucose Normal mg/dL (Normal) Other Laboratory Tests 01/23/25 06:25 Brief Hx & Hospital Course: 59-year-old female with a history of anxiety depression hypothyroidism diverticulosis NSAID-induced gastritis came in complaining of headache. Blood pressure was high in the range of 200 seen by Cardiology placed on losartan nifedipine and hydrochlorothiazide blood pressure came back to normal echocardiogram 55 percent ejection fraction August 2024. No further cardiac workup CT head negative. Seen by Neurology Dr. Joiner for headache who felt it is because of overuse of pain medications and anxiety and depression. Given a course of dexamethasone and Reglan and patient has improved being discharged home. No new medications she was advised to continue all her blood pressure medications and follow up with the primary Dr Consults/Reason for consult Cardiology Neurology Operations or Procedures CT head Echocardiogram Condition at Discharge: Fair Final Diagnosis/Problems List Asymptomatic bradycardia Hypertensive urgency: Ejection fraction 55 percent 09/19/2024, cardiology consult appreciated, continue losartan nifedipine and hydrochlorothiazide, no further cardiac workup Rule out acute CVA/TIA CT head negative neurology consult Dr. Joiner appreciated, the headache possibly due to medication overuse anxiety and depression Unspecified arthritis Thyroid disease Diverticulosis NSAID induced gastritis, DC NSAIDS pantoprazole Anemia Obesity Discharge Disposition: Home Discharge Instruct/Medications Diet: Cardiac 2g Na,low cholest Activity: Light activity Follow Up/Referral: Continue all your Previous home medications Follow up with the primary Dr Medications: None 35 (Time Taken for discharge summary 35 minutes) Discharge Statement: "Patient was advised to return to the ER or call 911 if any headaches, dizziness, shortness of breath, chest pain, abdominal pain, bleeding, fevers, or worsening of medical condition. Patient was counseled about treatment plan, medications, possible side effects, patientverbalized understanding. All questions were answered to the best of my ability. This discharge took greater then 30 minutes in planning, reviewing documentation, counseling the patient, and discussing with other team members." ASSESSMENT ASSESSMENT Hospital Course Improved Assessment Asymptomatic bradycardia Hypertensive urgency: Ejection fraction 55 percent 09/19/2024, cardiology consult appreciated, continue losartan nifedipine and hydrochlorothiazide, no further cardiac workup Rule out acute CVA/TIA CT head negative neurology consult Dr. Joiner appreciated, the headache possibly due to medication overuse anxiety and depression Unspecified arthritis Thyroid disease Diverticulosis NSAID induced gastritis, DC NSAIDS pantoprazole Anemia Obesity Date of Service: Jan 24, 2025 Billing Provider: DAYDAY OROZCO MD Common Visit Codes: [id number] DISCH DAY >30min DAYDAY OROZCO MD Jan 24, 2025 10:05
[2025-01-24 13:00] VITALS: BP 137/74; PULSE 61; RESP 20; TEMP 98.6; O2SAT 96
[2025-01-24 14:38] VITALS: BP 137/74; PULSE 61; RESP 20; TEMP 98.6; O2SAT 96
== END 2025-01-24 15:57 | disposition home or self-care (01) | DRG 103 ==
LOC: ER 10:20 → OVERFLOW 01-22 16:09 → TELE-WESTW 01-22 20:48
PROVIDERS: ADMIT Family Medicine; ATTEND Family Medicine
DX: G44.40 Drug-induced headache, not elsewhere classified, not intractable (principal); I16.0 Hypertensive urgency; I10 Essential (primary) hypertension; F41.9 Anxiety disorder, unspecified; E03.9 Hypothyroidism, unspecified; D64.9 Anemia, unspecified; E66.9 Obesity, unspecified; F32.A Depression, unspecified; T50.995A Adverse effect of other drugs, medicaments and biological substances, initial encounter; K57.30 Diverticulosis of large intestine without perforation or abscess without bleeding; M19.09 Primary osteoarthritis, other specified site; K29.70 Gastritis, unspecified, without bleeding; T39.395A Adverse effect of other nonsteroidal anti-inflammatory drugs [NSAID], initial encounter; Z79.2 Long term (current) use of antibiotics; Z81.8 Family history of other mental and behavioral disorders; Z82.3 Family history of stroke; Y92.89 Other specified places as the place of occurrence of the external cause
CPT/HCPCS: 36415; 70450; 74176; 80048; 80053; 80061; 81001; 84443; 84484; 85025; 93005; 96361; 96365; 96366; 96375; G0378; J1100; J2405; J2470; J7060

== ENCOUNTER 2025-04-22 13:46 | Emergency (ER) | payer MEDICARE, MEDICAID ==
[~2025-04-22] VITALS: Ht 165.1 cm; Wt 78.8 kg
[~2025-04-22 13:46] MED LIST changes: -CIPR-173 PO; -CLIN1CAP70 PO; -DICY10CA PO; -LOSA-533 PO; -LOSA-534 PO; +LOSA100T33 PO; +MAGN400T40 PO; -METR-344 PO; -PANT40T PO; -PANT40TA2 PO
[2025-04-22 13:52] VITALS: TEMP 98.3
--- NOTE | 2025-04-22 14:15 | ED.PDOC ---
History of Present Illness HPI Comments 59 y/o F, with PMHx of HTN and thyroid disease presents to the ED for CC of right sided numbness. Patient states, she has been experiencing right sided numbness [id number]. Patient reports, she was seen by her PCP for SS and was told to have no significant findings however, symptoms have persisted. Patient denies blurred vision, change in gait, disorientation, or confusion. No other symptoms or modifying factors present at this time. Chief Complaint: Right Sided Weakness Time Seen by MD: 14:00 Primary Care Provider: pt does not know Reviewed Notes: Nurses Notes, Medications, Allergies Allergies: Coded Allergies: No Known Drug Allergy (Verified Allergy, Unknown, 03/23/20) Home Meds Active Scripts Prednisone (Prednisone) 10 Mg Tab, 10 MG PO DAILY for 5 Days, #5 MG Prov:NUPUR MCGEE MD 04/22/25 Nifedipine (Nifedipine Er) 30 Mg Tab, 1 TAB PO QPM for 30 Days, #30 TAB 1 Refill Prov:BISMARK HANSEN RESIDENT 09/20/24 Acetaminophen (Tylenol Extra Strength) 500 Mg Tab, 1000 MG PO Q6HP PRN, #30 TAB Prov:LIT ALMARAZ MD 03/12/24 Reported Medications Losartan Potassium & Hydrochlo (Losartan Potassium/Hydroc) 1 Tab Tab, 1 TAB PO DAILY, #30 TAB 5 Refills 01/22/25 Magnesium Oxide (MAGNESIUM OXIDE) 400 Mg Tab, 1 TAB PO DAILY, #30 TAB 5 Refills 01/22/25 Levothyroxine Sodium (Levothyroxine Sodium) 25 Mcg Tab, 1 TAB PO DAILY 09/17/24 Information Source: Patient Mode of Arrival: Ambulatory Severity: Moderate Timing: Months Duration: Since onset Prehospital treatment: None Past Medical History PAST MEDICAL HISTORY: Anxiety, HTN, Thyroid Surgical History: Denies all surgeries ICE HANDLER History: No Pertinent ICE HANDLER History Family History Family History: Reviewed,noncontributory to illness Social History Smoker: Non-Smoker Alcohol: Denies ETOH Use Drugs: Denies Drug Use Lives In: Home Constitutional: denies: chills, diaphoresis, fatigue, fever, malaise, sweats, weakness, others EENTM: denies: blurred vision, double vision, ear bleeding, ear discharge, ear drainage, ear pain, ear ringing, eye pain, eye redness, hearing loss, mouth pain, mouth swelling, nasal discharge, nose bleeding, nose congestion, nose pain, photophobia, tearing, throat pain, throat swelling, voice changes, others Respiratory: denies: cough, hemoptysis, orthopnea, SOB at rest, shortness of breath, SOB with excertion, stridor, wheezing, others Cardiovascular: denies: chest pain, dizzy spells, diaphoresis, Dyspnea on exertion, edema, irregular heart beat, left arm pain, lightheadedness, palpitations, PND, syncope, others Gastrointestinal: denies: abdomen distended, abdominal pain, blood streaked bowels, constipated, diarrhea, dysphagia, difficulty swallowing, hematemesis, melena, nausea, poor appetite, poor fluid intake, rectal bleeding, rectal pain, vomiting, others Genitourinary: denies: abnormal vagina bleeding, burning, dyspareunia, dysuria, flank pain, frequency, hematuria, incontinence, pain, , vagina discharge, urgency, others Neurological: reports: right sided numbness; denies: dizziness, fainting, headache, left sided numbness, left sided weakness, numbness, paresthesia, pre- existing deficit, right sided weakness, seizure, speech problems, tingling, tremors, weakness, others Musculoskeletal: denies: back pain, gout, joint pain, joint swelling, muscle pain, muscle stiffness, neck pain, others Integumetry: denies: bruises, change in color, change in hair/nails, dryness, laceration, lesions, lumps, rash, wounds, others Allergic/Immunocompromised: denies: Difficulty Healing, Frequent Infections, Hives, Itching, others Hematologic/Lymphatic: denies: anemia, blood clots, easy bleeding, easy bruising, swollen glands, others Endocrine: denies: excessive hunger, excessive sweating, excessive thirst, excessive urination, flushing, intolerance to cold, intolerance to heat, unexplained weight gain, unexplained weight loss, others Psychiatric: denies: anxiety, bipolar disorder, depression, hopeless, panic disorder, schizophrenia, sleepless, suicidal, others All Other Systems: Reviewed and Negative Physical Exam General Appearance: Moderate Distress HEENT: Normal ENT Inspection, Pharynx Normal, TMs Normal Neck: Full Range of Motion, Non-Tender, Normal, Normal Inspection Respiratory: Chest Non-Tender, Lungs Clear, No Accessory Muscle Use, No Respira tory Distress, Normal Breath Sounds Cardiovascular: No Edema, No JVD, No Murmur, No Gallop, Normal Peripheral Pulses, Regular Rate/Rhythm Breast Exam: Deferred Gastrointestinal: No Organomegaly, Non Tender, No Pulsatile Mass, Normal Bowel Sounds, Soft Genitalia: Deferred Pelvic: Deferred Rectal: Deferred Extremities: No calf tenderness, Normal capillary refill, Normal inspection, Normal range of motion, Non-tender, No pedal edema Musculoskeletal : Apperance: Normal Neurologic: Alert, perl programmer II-XII nml as Tested, No Motor Deficits, Normal Affect, Normal Mood, No Sensory Deficits Cerebellar Function: Normal Reflexes: Normal Skin: Dry, Normal Color, Warm Peripheral Pulses: 3+ Radial (R), 3+ Radial (L) Lymphatic: No Adenopathy Was a procedure done? Was a procedure done?: No Differential Dx Considerations may include: musculoskeletal pain, strain, TIA, MS, Radiculopathy X-Ray, Labs, Meds, VS Vital Signs Date Time Temp Pulse Resp B/P (MAP) Pulse Ox O2 Delivery O2 Flow Rate FiO2 04/22/25 13:52 98.3 63 18 140/87 (104) 97 98.3 Lab Test 04/22/25 14:04 04/22/25 13:59 Range/Units Urine Color Light-yellow Yellow Urine Clarity Clear Clear Urine pH 5.5 5.0-9.0 Urine Specific [place] 1.016 1.001-1.035 Urine Protein Negative Negative Urine Ketones Negative Negative Urine Blood Negative Negative /uL Urine Nitrite Negative Negative Urine Bilirubin Negative Negative Urine Urobilinogen Normal Negative mg/dL Urine Leukocyte Esterase Negative Negative /uL Urine RBC 1 0 - 4 /hpf Urine Microscopic WBC 1 0-5 /HPF Urine Squamous Epithelial Cells Few <5 /hpf Urine Bacteria Few H None Seen /hpf Urine Mucus Few None Seen Urine Glucose Normal Normal mg/dL POC Glucose 106 70-106 mg/dl [facility] [id number] [place] [id number] Ph: [phone] DIAGNOSTIC IMAGING Diagnostic Imaging Report : [id number] Signed PATIENT: CT NARAYAN ACCT: [id number] UNIT: [id number] : 1965 LOC: ER ROOM / BED: / AGE / SEX: 59 / F ADM STATUS: REG ER SERVICE [id number] ORDERING PHYSICIAN: NUPUR MCGEE MD PROCEDURE(s): HWOCT - HEAD WITHOUT CONTRAST REASON: tia ORDER NUMBER(s): [id number], ACCESSION NUMBER(s): [id number] EXAM: CT HEAD WITHOUT CONTRAST INDICATION: tia TECHNIQUE: CT of the head without intravenous contrast. Radiation Dose : 1. Head: CT Dose: CTDI volume is 60.53 mGy. Dose-length product is 1192.81 mGy*cm The dose indicators for CT are the volume Computed Tomography (CT) Dose Index (CTDIvol) and the Dose Length Product (DLP), and are measured in units of mGy and mGy-cm, respectively. These indicators are not patient dose, but values generated from the CT scanner acquisition factors. The report includes radiation exposure data for exposures received during this examination. COMPARISON: CT HEAD WITHOUT CONTRAST on DOS: 01/23/25, CT HEAD WITHOUT CONTRAST on DOS: 09/17/24 FINDINGS: There is no evidence of acute intracranial hemorrhage, extra-axial collection, mass effect, midline shift, herniation or hydrocephalus. The ventricles, sulci and cisterns are age appropriate. The garcía-white differentiation is intact. Patchy periventricular and subcortical white matter hypoattenuation is nonspecific but may be related to small vessel ischemic disease. The visualized paranasal sinuses and mastoid air cells are clear. The surrounding soft tissues and osseous structures are unremarkable. IMPRESSION: 1. No acute intracranial abnormality. Radiation optimization: All CT scans at this facility use at least one of these dose optimization techniques: automated exposure control mA and/or kV adjustment per patient size (includes targeted exams where dose is matched to clinical indication) or iterative reconstruction. ATED BY: MIHAI FREY MD DICTATED DATE/TIME: 04/22/25 144 SIGNED BY: MIHAI FREY MD SIGNED DATE/TIME: 04/22/25 144 CC: Patient alert. Complaining of headache right side facial numbness. Vitals stable. Answering questions. Physical examination does show possible radiculopathy. Possibly will need outpatient MRI. Saturation pristine on room air. Heart rate within normal limits. Blood sugar within normal limits. CT of the head reviewed does not show any acute changes. Was given low dose of steroid. Was told to follow up with her primary care physician. Was told to come back if there is any problem. Time of 1ST Reevaluation: 14:30 Reevaluation 1ST: Improved Patient Education/Counseling: Diagnosis, Treatment Family Education/Counseling: No Family Present SEPSIS Sepsis Screen Physician Orders Head Without Contrast (04/22/25 14:07) Vital Signs Date Time Temp Pulse Resp B/P (MAP) Pulse Ox O2 Delivery O2 Flow Rate FiO2 04/22/25 13:52 98.3 63 18 140/87 (104) 97 98.3 Departure 1 Departure Time of Disposition: 14:45 Impression: Primary Impression: Autonomic disorder Disposition: 01 HOME / SELF CARE / HOMELESS Condition: Good e-Prescriptions Prednisone (Prednisone) 10 Mg Tab 10 MG PO DAILY for 5 Days, #5 MG Prov: NUPUR MCGEE MD 04/22/25 Discharged With: Self Critical Care Note Critical Care Time?: No Stability Stability form required: No Heart Score Heart Score: Heart Score Response (Comments) Value History N/A 0 EKG N/A 0 Age N/A 0 Risk Factors N/A 0 Troponin N/A 0 Total 0 I personally scribed for NUPUR MCGEE MD ([email or web address]) on 04/22/25 at 14:15. Electronically submitted by Mindy Koch ([email or web address]). I personally scribed for NUPUR MCGEE MD ([email or web address]) on 04/22/25 at 15:16. Electronically submitted by Mindy Koch ([email or web address]). NUPUR MCGEE MD Apr 22, 2025 14:15
[2025-04-22] MEDS ORDERED: PRED10TA PO (14:46)
--- NOTE | 2025-04-22 14:48 | DVH ---
EXAM: CT HEAD WITHOUT CONTRAST INDICATION: tia TECHNIQUE: CT of the head without intravenous contrast. Radiation Dose : 1. Head: CT Dose: CTDI volume is 60.53 mGy. Dose-length product is 1192.81 mGy*cm The dose indicators for CT are the volume Computed Tomography (CT) Dose Index (CTDIvol) and the Dose Length Product (DLP), and are measured in units of mGy and mGy-cm, respectively. These indicators are not patient dose, but values generated from the CT scanner acquisition factors. The report includes radiation exposure data for exposures received during this examination. COMPARISON: CT HEAD WITHOUT CONTRAST on DOS: 01/23/25, CT HEAD WITHOUT CONTRAST on DOS: 09/17/24 FINDINGS: There is no evidence of acute intracranial hemorrhage, extra-axial collection, mass effect, midline s hift, herniation or hydrocephalus. The ventricles, sulci and cisterns are age appropriate. The garcía-white differentiation is intact. Patchy periventricular and subcortical white matter hypoattenuation is nonspecific but may be related to small vessel ischemic disease. The visualized paranasal sinuses and mastoid air cells are clear. The surrounding soft tissues and osseous structures are unremarkable. IMPRESSION: 1. No acute intracranial abnormality. Radiation optimization: All CT scans at this facility use at least one of these dose optimization ria hniques: automated exposure control mA and/or kV adjustment per patient size (includes targeted exam s where dose is matched to clinical indication) or iterative reconstruction.
[2025-04-22 15:11] LABS: Urine Bacteria FEW /hpf (None Seen); Urine Blood Negative /uL (Negative); Urine Clarity Clear (Clear); Urine Color Light-Yellow (Yellow); Urine Mucus FEW (None Seen); Urine Protein, UAD Negative (Negative); Urine Specific Gravity 1.016 (1.001-1.035); Urine Squamous Epithelial Cell FEW /hpf (<5); Urine Urobilinogen Normal (Negative); Urine WBC 1 /HPF (0-5); Urine pH 5.5 (5.0-9.0)
[2025-04-22 15:58] VITALS: BP 165/70; PULSE 63; RESP 63; O2SAT 97
== END 2025-04-22 16:00 | disposition home or self-care (01) ==
LOC: ER 13:46
DX: G90.9 Disorder of the autonomic nervous system, unspecified (principal); I10 Essential (primary) hypertension; F41.9 Anxiety disorder, unspecified; Z79.890 Hormone replacement therapy; Z79.52 Long term (current) use of systemic steroids; Z79.899 Other long term (current) drug therapy
CPT/HCPCS: 70450; 81001; 82947; 82962

== ENCOUNTER 2025-10-27 11:47 | Emergency (ER) | payer MEDICARE, MEDICAID ==
[~2025-10-27] VITALS: Ht 157.5 cm; Wt 79.4 kg
[~2025-10-27 11:47] MED LIST changes: +PRED10TA PO
[2025-10-27] MEDS: SODIUM CHLORIDE 0.9% 1,000 ML IV ONE (12:15)
--- NOTE | 2025-10-27 12:18 | ED.PDOC ---
History of Present Illness HPI Comments This is a 60 year old female presenting to the ED with chief complaint of elevated BP. Patient reports that she began to experience a headache with associated nausea and general malaise last night, checking her BP this morning and noting it was in the 210s systolically. Patient relays that she took her Losartan this morning, but no resolution in her BP had been noted. Took some ibuprofen for headache last night with no relief. Headache not worst at onset. Reports some associated nausea. No fevers. Patient denies any chest pain, SOB, dizziness, abdominal pain, or syncope. Chief Complaint: High Blood Pressure Time Seen by MD: 12:15 Primary Care Provider: UNKNOWN Reviewed Notes: Nurses Notes, Medications, Allergies Allergies: Coded Allergies: No Known Drug Allergy (Verified Allergy, Unknown, 03/23/20) Home Meds Active Scripts Prednisone (Prednisone) 10 Mg Tab, 10 MG PO DAILY for 5 Days, #5 MG Prov:NUPUR MGCEE MD 04/22/25 Nifedipine (Nifedipine Er) 30 Mg Tab, 1 TAB PO QPM for 30 Days, #30 TAB 1 Refill Prov:BISMARK HANSEN RESIDENT 09/20/24 Acetaminophen (Tylenol Extra Strength) 500 Mg Tab, 1000 MG PO Q6HP PRN, #30 TAB Prov:LIT ALMARAZ MD 03/12/24 Reported Medications Losartan Potassium & Hydrochlo (Losartan Potassium/Hydroc) 1 Tab Tab, 1 TAB PO DAILY, #30 TAB 5 Refills 01/22/25 Magnesium Oxide (MAGNESIUM OXIDE) 400 Mg Tab, 1 TAB PO DAILY, #30 TAB 5 Refills 01/22/25 Levothyroxine Sodium (Levothyroxine Sodium) 25 Mcg Tab, 1 TAB PO DAILY 09/17/24 Information Source: Patient Mode of Arrival: Ambulatory Severity: Moderate Timing: Hours Duration: Since onset Prehospital treatment: None Medication Refill: For: Pain, For: Hypertension Past Medical History PAST MEDICAL HISTORY: Anxiety, HTN, Thyroid Surgical History: Denies all surgeries [employer] History: No Pertinent [employer] History Family History Family History: Reviewed,noncontributory to illness Social History Smoker: Non-Smoker Alcohol: Denies ETOH Use Drugs: Denies Drug Use Lives In: Home Constitutional: denies: chills, diaphoresis, fatigue, fever, malaise, sweats, weakness, others EENTM: denies: blurred vision, double vision, ear bleeding, ear discharge, ear drainage, ear pain, ear ringing, eye pain, eye redness, hearing loss, mouth pain, mouth swelling, nasal discharge, nose bleeding, nose congestion, nose pain, photophobia, tearing, throat pain, throat swelling, voice changes, others Respiratory: denies: cough, hemoptysis, orthopnea, SOB at rest, shortness of breath, SOB with excertion, stridor, wheezing, others Cardiovascular: denies: chest pain, dizzy spells, diaphoresis, Dyspnea on exertion, edema, irregular heart beat, left arm pain, lightheadedness, palpitations, PND, syncope, others Gastrointestinal: reports: nausea; denies: abdomen distended, abdominal pain, blood streaked bowels, constipated, diarrhea, dysphagia, difficulty swallowing, hematemesis, melena, poor appetite, poor fluid intake, rectal bleeding, rectal pain, vomiting, others Genitourinary: denies: abnormal vagina bleeding, burning, dyspareunia, dysuria, flank pain, frequency, hematuria, incontinence, pain, , vagina discharge, urgency, others Neurological: reports: headache; denies: dizziness, fainting, left sided numbness, left sided weakness, numbness, paresthesia, pre-existing deficit, right sided numbness, right sided weakness, seizure, speech problems, tingling, tremors, weakness, others Musculoskeletal: denies: back pain, gout, joint pain, joint swelling, muscle pain, muscle stiffness, neck pain, others Integumetry: denies: bruises, change in color, change in hair/nails, dryness, laceration, lesions, lumps, rash, wounds, others Allergic/Immunocompromised: denies: Difficulty Healing, Frequent Infections, Hives, Itching, others Hematologic/Lymphatic: denies: anemia, blood clots, easy bleeding, easy bruising, swollen glands, others Endocrine: denies: excessive hunger, excessive sweating, excessive thirst, excessive urination, flushing, intolerance to cold, intolerance to heat, unexp lained weight gain, unexplained weight loss, others Psychiatric: denies: anxiety, bipolar disorder, depression, hopeless, panic disorder, schizophrenia, sleepless, suicidal, others All Other Systems: Reviewed and Negative Physical Exam General Appearance: No Apparent Distress, Normal HEENT: Normal ENT Inspection, Pharynx Normal, TMs Normal Neck: Full Range of Motion, Non-Tender, Normal, Normal Inspection Respiratory: Chest Non-Tender, Lungs Clear, No Accessory Muscle Use, No Respiratory Distress, Normal Breath Sounds Cardiovascular: No Edema, No JVD, No Murmur, No Gallop, Normal Peripheral Pulse s, Regular Rate/Rhythm Breast Exam: Deferred Gastrointestinal: No Organomegaly, Non Tender, No Pulsatile Mass, Normal Bowel Sounds, Soft Genitalia: Deferred Pelvic: Deferred Rectal: Deferred Extremities: No calf tenderness, Normal capillary refill, Normal inspection, Normal range of motion, Non-tender, No pedal edema Musculoskeletal : Apperance: Normal Neurologic: Alert, analysis mgr II-XII nml as Tested, No Motor Deficits, Normal Affect, Normal Mood, No Sensory Deficits Cerebellar Function: Normal Reflexes: Normal Skin: Dry, Normal Color, Warm Lymphatic: No Adenopathy Was a procedure done? Was a procedure done?: No Differential Dx Considerations may include: Tension headache vs hypertensive emergency vs hypertensive urgency vs intracranial hemorrhage X-Ray, Labs, Meds, VS Vital Signs Date Time Temp Pulse Resp B/P (MAP) Pulse Ox O2 Delivery O2 Flow Rate FiO2 10/27/25 15:56 97.8 65 18 161/85 (110) 99 97.8 10/27/25 13:08 157/92 10/27/25 12:29 98.3 70 16 157/92 (113) 98.3 10/27/25 11:50 97.3 61 18 189/92 97 97.3 Lab Test 10/27/25 12:52 Range/Units White Blood Count 7.9 4.4-10.8 10^3/uL Red Blood Count 4.60 4.0-5.20 10^6/uL Hemoglobin 13.8 12.2-16.2 g/dL Hematocrit 41.4 36.0-46.0 % Mean Corpuscular Volume 90.0 80.0-100.0 fL Mean Corpuscular Hemoglobin 30.1 28.0-32.0 pg Mean Corpuscular Hemoglobin Concent 33.4 32.0-36.0 g/dL Red Cell Distribution Width 13.3 11.8-14.3 % Platelet Count 308 140-450 10^3/uL Mean Platelet Volume 9.4 6.9-10.8 fL Neutrophils (%) (Auto) 57.5 37.0-80.0 % Lymphocytes (%) (Auto) 33.7 10.0-50.0 % Monocytes (%) (Auto) 6.3 0.0-12.0 % Eosinophils (%) (Auto) 2.1 0.0-7.0 % Basophils (%) (Auto) 0.4 0.0-2.0 % Neutrophils # (Auto) 4.6 1.6-8.6 10 ^3/uL Lymphocytes # (Auto) 2.7 0.4-5.4 10 ^3/uL Monocytes # (Auto) 0.5 0-1.3 10 ^3/uL Eosinophils # (Auto) 0.2 0-0.8 10 ^3/uL Basophils # (Auto) 0 0-0.2 10 ^3/uL Nucleated Red Blood Cells 0.1 % Sodium Level 138 136-145 mmol/L Potassium Level 3.7 3.5-5.1 mmol/L Chloride Level 104 98-107 mmol/L Carbon Dioxide Level 27 20-31 mmol/L Anion Gap 7 5-15 Blood Urea Nitrogen 12 9-23 mg/dL Creatinine 0.70 0.550-1.02 mg/dL Glomerular Filtration Rate Calc 98 >90 mL/min BUN/Creatinine Ratio 17.1 10.0-20.0 Serum Glucose 91 74-106 mg/dL Calcium Level 9.3 8.7-10.4 mg/dL Total Bilirubin 0.4 0.2-1.0 mg/dL Aspartate Amino Transferase (AST) 15 13-40 U/L Alanine Aminotransferase (ALT) 13 7-40 U/L Alkaline Phosphatase 60 46-116 U/L Total Protein 7.7 5.7-8.2 g/dL Albumin 4.3 3.2-4.8 g/dL Lipase 51 12-53 U/L Current Medications Medications (Trade) Dose Ordered Sig/Awais Route Start Time Stop Time Status Last Admin Sodium Chloride 1,000 ml @ 1,000 mls/hr Q1H ONCE IV 10/27/25 12:15 10/27/25 13:14 DC 10/27/25 12:15 Acetaminophen (Tylenol Tablet Or Capsule) 1,000 mg ONCE ONCE PO 10/27/25 12:15 10/27/25 12:16 DC 10/27/25 13:08 Metoclopramide HCl (Reglan Injection) 10 mg ONCE ONCE IV 10/27/25 12:15 10/27/25 12:16 DC 10/27/25 13:08 Ketorolac Tromethamine (Toradol Injection) 15 mg ONCE ONCE IV 10/27/25 12:15 10/27/25 12:16 DC 10/27/25 13:08 Hydralazine HCl (Apresoline Tablet) 25 mg ONCE ONCE PO 10/27/25 12:15 10/27/25 12:16 DC 10/27/25 13:08 [place] [id number] Ph: [phone] DIAGNOSTIC IMAGING Diagnostic Imaging Report : [id number] Signed PATIENT: CT NARAYAN ACCT: [id number] UNIT: [id number] : 1965 LOC: ER ROOM / BED: / AGE / SEX: 60 / F ADM STATUS: REG ER SERVICE 1213 ORDERING PHYSICIAN: ELENI IRELAND MD PROCEDURE(s): HWOCT - HEAD WITHOUT CONTRAST REASON: headache, elevated BP ORDER NUMBER(s): [id number], ACCESSION NUMBER(s): [id number] CLINICAL HISTORY: headache, elevated BP TECHNIQUE: Helical scanning was performed of the head from the skull base to the vertex. Multiplanar reconstructions were performed. This exam was performed according to our departmental dose optimization program. Up-to-date CT equipment and radiation dose reduction techniques are utilized as appropriate. CTDI 57 DLP 1000 COMPARISON: CT HEAD WITHOUT CONTRAST on DOS: 04/22/25, CT HEAD WITHOUT CONTRAST on DOS: 01/23/25, CT HEAD WITHOUT CONTRAST on DOS: 09/17/24, BRAIN HEAD WO CONTRAST on DOS: 02/27/21 FINDINGS: There is no evidence for acute intracranial hemorrhage, acute ischemic changes, mass, mass effect, or extra-axial fluid collection. There is no hydrocephalus or midline shift. There is no effacement of the cerebral sulci and basal subarachnoid cisterns. The garcía-white matter differentiation is well maintained. The imaged paranasal sinuses are clear. IMPRESSION: NO ACUTE INTRACRANIAL ABNORMALITY SEEN. ATED BY: EDIE MENARD MD DICTATED DATE/TIME: 10/27/251250 SIGNED BY: EDIE MENARD MD SIGNED DATE/TIME: 10/27/251250 CC: [address] [id number] Ph: [phone] DIAGNOSTIC IMAGING Diagnostic Imaging Report : [id number] Signed PATIENT: CT NARAYAN ACCT: [id number] UNIT: [id number] : 1965 LOC: ER ROOM / BED: / AGE / SEX: 60 / F ADM STATUS: REG ER SERVICE 1208 ORDERING PHYSICIAN: ELENI IRELAND MD PROCEDURE(s): CXR1 - CHEST XRAY 1 VIEW REASON: elevated BP ORDER NUMBER(s): [id number], ACCESSION NUMBER(s): [id number] CLINICAL HISTORY: elevated BP TECHNIQUE: Single view of the chest was obtained. COMPARISON: XY CHEST TWO VIEWS ROUTINE on DOS: 09/17/24, XY CHEST TWO VIEWS ROUTINE on DOS: 06/28/23, CHEST PORTABLE on DOS: 11/08/21, CHEST XRAY 1 VIEW on DOS: 01/10/21, CHEST PORTABLE on DOS: 03/23/20 FINDINGS: The heart size and pulmonary vasculature are normal. The lungs are clear. IMPRESSION: NO ACUTE CARDIOPULMONARY PROCESS. ATED BY: EDIE MENARD MD DICTATED DATE/TIME: 10/27/251250 SIGNED BY: EDIE MENARD MD SIGNED DATE/TIME: 10/27/251250 CC: Images Reviewed?: Images reviewed and evaluated by me Time of 1ST Reevaluation: 13:15 Reevaluation 1ST: Improved Time of 2ND Reevaluation: 16:17 Reevaluation 2ND: Improved Patient Education/Counseling: Diagnosis, Treatment Family Education/Counseling: No Family Present SEPSIS Sepsis Screen Date sepsis recognized/suspect: Oct 27, 2025 Time Sepsis recognized/suspect: 1150 Recent Procedure: No On Antibiotic Therapy: No Respiratory Rate >20: No Heart Rate >90: No Temp<36 C (96.8 F) or >38.3 C: No SBP <90 or MAP <65 mmHG: No New Acute Mental Status Change: No Is the patient on CPAP, BIPAP,: No Physician Orders Chest Xray 1 View (10/27/25 12:08) Head Without Contrast (10/27/25 12:13) Vital Signs Date Time Temp Pulse Resp B/P (MAP) Pulse Ox O2 Delivery O2 Flow Rate FiO2 10/27/25 15:56 97.8 65 18 161/85 (110) 99 97.8 10/27/25 13:08 157/92 10/27/25 12:29 98.3 70 16 157/92 (113) 98.3 10/27/25 11:50 97.3 61 18 189/92 97 97.3 Laboratory Tests Test 10/27/25 12:52 White Blood Count 7.9 10^3/uL (4.4-10.8) Medications Medications Dose Ordered Sig/Awais Route Start Time Stop Time Status Last Admin Dose Admin Acetaminophen 1,000 mg ONCE ONCE PO 10/27/25 12:15 10/27/25 12:16 DC 10/27/25 13:08 Hydralazine HCl 25 mg ONCE ONCE PO 10/27/25 12:15 10/27/25 12:16 DC 10/27/25 13:08 Ketorolac Tromethamine 15 mg ONCE ONCE IV 10/27/25 12:15 10/27/25 12:16 DC 10/27/25 13:08 Metoclopramide HCl 10 mg ONCE ONCE IV 10/27/25 12:15 10/27/25 12:16 DC 10/27/25 13:08 Sodium Chloride 1,000 ml @ 1,000 mls/hr Q1H ONCE IV 10/27/25 12:15 10/27/25 13:14 DC 10/27/25 12:15 Departure 1 Departure Time of Disposition: 13:05 (60-year-old female with past medical history of hypertension presenting for evaluation of headache since last night with uncontrolled high blood pressure. Given the patient's headache and uncontrolled hypertension consider possible acute intracranial hemorrhage, CVA. Patient has normal neurologic examination. Patient generally feeling unwell, consider possible beginnings of viral illness. Patient with no chest pain, shortness of breath. Chest x-ray was performed which shows no evidence of any acute cardiopulmonary process. Reporting nausea with this, however, no abdominal pain . CBC with no evidence of critical leukocytosis or significant anemia. Metabolic panel with no evidence of any acute electrolyte abnormalities , acute kidney insufficiency or evidence of acute end-organ damage. Liver function tests with no evidence of any acute electrolyte dysfunction. Patient was given 1 L normal saline IV fluid bolus, IV Reglan, IV Toradol, oral Tylenol for h eadache. Was given a 1 time oral hydralazine dose. Feeling improved after interventions. Vital signs improved after interventions. Patient is stable for discharge for further outpatient management of what appears to be in on life- threatening etiology of the headache.) Impression: Primary Impression: Headache Additional Impression: Uncontrolled hypertension Disposition: HOME / SELF CARE / HOMELESS Condition: Stable Discharged With: Self Critical Care Note Critical Care Time?: No Stability Stability form required: No Heart Score Heart Score: Heart Score Response (Comments) Value History N/A 0 EKG N/A 0 Age N/A 0 Risk Factors N/A 0 Troponin N/A 0 Total 0 I personally scribed for ELENI IRELAND MD ([email or web address]) on 10/27/25 at 12:18. Electronically submitted by Sascha Vora ([email or web address]). I personally scribed for ELENI IRELAND MD ([email or web address]) on 10/27/25 at 13:00. Electronically submitted by Sascha Vora ([email or web address]). ELENI IRELAND MD Oct 27, 2025 12:18
--- NOTE | 2025-10-27 12:53 | DVH ---
CLINICAL HISTORY: headache, elevated BP TECHNIQUE: Helical scanning was performed of the head from the skull base to the vertex. Multiplanar reconstructions were performed. This exam was performed according to our departmental dose optimization program. Up-to-date CT equipment and radiation dose reduction techniques are utilized as appropriate. CTDI 57 DLP 1000 COMPARISON: CT HEAD WITHOUT CONTRAST on DOS: 04/22/25, CT HEAD WITHOUT CONTRAST on DOS: 01/23/25, CT HEAD WITHOUT CONTRAST on DOS: 09/17/24, BRAIN HEAD WO CONTRAST on DOS: 02/27/21 FINDINGS: There is no evidence for acute intracranial hemorrhage, acute ischemic changes, mass, mass effect, or extra-axial fluid collection. There is no hydrocephalus or midline shift. There is no effacement of the cerebral sulci and basal subarachnoid cisterns. The garcía-white matter differentiation is well maintained. The imaged paranasal sinuses are clear. IMPRESSION: NO ACUTE INTRACRANIAL ABNORMALITY SEEN.
--- NOTE | 2025-10-27 12:54 | DVH ---
CLINICAL HISTORY: elevated BP TECHNIQUE: Single view of the chest was obtained. COMPARISON: XY CHEST TWO VIEWS ROUTINE on DOS: 09/17/24, XY CHEST TWO VIEWS ROUTINE on DOS: 06/28/23, CHEST PORTABLE on DOS: 11/08/21, CHEST XRAY 1 VIEW on DOS: 01/10/21, CHEST PORTABLE on DOS: 03/23/20 FINDINGS: The heart size and pulmonary vasculature are normal. The lungs are clear. IMPRESSION: NO ACUTE CARDIOPULMONARY PROCESS.
[2025-10-27 13:07] LABS: Hematocrit 41.4 % (36.0-46.0); Hemoglobin 13.8 g/dL (12.2-16.2); Mean Corpuscular Hemoglobin 30.1 pg (28.0-32.0); Mean Corpuscular Volume 90.0 fL (80.0-100.0); Nucleated Red Blood Cells % 0.1 %
[2025-10-27] MEDS: KETOROLAC TROMETH 30 MG/ML 1ML VIAL IV ONE (13:08)
[2025-10-27] MEDS: METOCLOPRAMIDE HCL 5MG/ml INJ 2ml VIAL IV ONE (13:08)
[2025-10-27] MEDS: ACETAMINOPHEN 500 MG TAB or CAP PO ONE (13:08)
[2025-10-27 13:22] LABS: Alanine Aminotransferase 13 U/L (7-40); Albumin 4.3 g/dL (3.2-4.8); Alkaline Phosphatase 60 U/L (46-116); Anion Gap 7 (5-15); BUN/Creatinine Ratio 17.1 (10.0-20.0); Bilirubin, Total 0.4 mg/dL (0.2-1.0); Blood Urea Nitrogen 12 mg/dL (9-23); Calcium 9.3 mg/dL (8.7-10.4); Carbon Dioxide 27 mmol/L (20-31); Chloride 104 mmol/L (98-107); Glucose 91 mg/dL (74-106); Lipase 51 U/L (12-53); Potassium 3.7 mmol/L (3.5-5.1); Sodium 138 mmol/L (136-145); Total Protein 7.7 g/dL (5.7-8.2)
[2025-10-27 15:56] VITALS: BP 161/85; PULSE 65; RESP 18; TEMP 97.8; O2SAT 99
== END 2025-10-27 15:56 | disposition home or self-care (01) ==
LOC: ER 11:47
DX: R51.9 Headache, unspecified (principal); I10 Essential (primary) hypertension; F41.9 Anxiety disorder, unspecified; Z79.899 Other long term (current) drug therapy; Z79.890 Hormone replacement therapy; Z79.52 Long term (current) use of systemic steroids
CPT/HCPCS: 36415; 70450; 71045; 80053; 83690; 85025; 96361; 96374; 96375; 99285; J1885; J2765; J7030